=== PATIENT | male | born 1945 | race Caucasian/White ===

== ENCOUNTER → 2018-04-05 14:26 | Outpatient (CLI) | payer MEDICARE, OTHER, SELFPAY ==
[2018-04-05 15:37] LABS: PSA,Total - Annual Screen 0.56 ng/mL (0.00-4.00)
== END ==
PROVIDERS: Family Provider Internal Medicine; PCP Internal Medicine; Visit Provider Urology
DX: Z12.5 Encounter for screening for malignant neoplasm of prostate (principal)
CPT/HCPCS: 36415; 84153; G0103

== ENCOUNTER 2018-06-06 21:10 | Emergency (ER) | payer MEDICARE, OTHER, SELFPAY ==
[2018-06-06 21:11] VITALS: BP 92/54; PULSE 111; RESP 18; TEMP 37.9; O2SAT 94; BMI 23.2
--- NOTE | 2018-06-06 22:08 | EKG12_ITS ---
Test Reason : CP Blood Pressure : / mmHG Vent. Rate : 107 BPM Atrial Rate : 107 BPM P-R Int : 152 ms QRS Dur : 086 ms QT Int : 342 ms P-R-T Axes : 082 -23 010 degrees QTc Int : 456 ms Sinus tachycardia Leftward axis Low voltage QRS (limb leads) Anterior infarct , age undetermined Abnormal ECG Confirmed by BERNA JOSE, SHAHNAZ ([id number]), story editor ANAMIKA NOVAK ([id number]) on 06/10/2018 1:09:08 PM Referred By: ANDRE/JOSE LUIS Confirmed By:SHAHNAZ CORONEL MD
--- NOTE | 2018-06-06 22:15 | RAD_ITS ---
STUDY: X-RAY CHEST REASON FOR EXAM: Male, 72 years old. Shortness of breath TECHNIQUE: Frontal view of the chest COMPARISON: 06/04/2016 FINDINGS: The lungs are clear. There are no pleural effusions. There is no pneumothorax. The heart is normal in size. There are stable postsurgical changes from a prior sternotomy and coronary artery bypass. RAD/Chest 1 View (Portable) IMPRESSION: No acute thoracic pathology. Electronically Signed: Rodrigo Kemp, at 23:23 EDT Tel , Service support ,
[2018-06-06 22:30] LABS: Absolute Neutrophil Count 9.5 X10^3/uL (2.0-7.7); Basophil# 0.02 X10^3/uL; Basophil% 0.2 % (0-1); Differential Indicated SCAN CRITERIA MET; Eosinophil# 0.05 X10^3/uL; Eosinophils% 0.4 % (0-5); Hematocrit 48.9 % (40-54); Hemoglobin 16.7 g/dl (13.0-16.5); Lymphocyte % 5.3 % (19-41); Mean Corp Hgb Conc 34.2 g/gl (32-36); Mean Corpuscular Hgb 31.9 pg (27.0-32.0); Mean Corpuscular Volume 93.5 fL (80-94); Mean Platelet Vol. 10.1 fl (6.2-12.0); Monocyte# 1.11 X10^3/uL; Monocyte% 9.9 % (0-10); Neutrophil # 9.45 X10^3/uL (2.7-7.7); Neutrophil % 84.1 % (47-70); POSITIVE COUNT NO; POSITIVE DIFFERENTIAL YES; POSITIVE MORPHOLOGY NO; Platelet Count 200 K/mm3 (150-450); RBC Distribution Width CV 14.4 % (11.6-14.6); Red Blood Count 5.23 M/mm3 (4.6-6.2); White Blood Count 11.2 K/mm3 (4.4-11.0)
[2018-06-06] MEDS: Morphine 4 MG/ML Syringe IV (22:33)
[2018-06-06] MEDS: MethylPREDNISolone 125 MG/2 ML Vial IV (22:33)
[2018-06-06] MEDS: 0.9% Normal Saline 1,000 ML 150 ML IV (22:33)
[2018-06-06] MEDS: Acetaminophen 500 MG Tablet 1000 MG PO (22:33)
[2018-06-06] MEDS: Ondansetron 4 MG/2 ML Vial IV (22:33)
[2018-06-06 22:35] VITALS: BP 108/68; PULSE 99; RESP 20; O2SAT 94
[2018-06-06 22:35] LABS: ALB/GLOB Ratio 1.1 RATIO (0.9-2.4); AST(SGOT) 27 U/L (15-37); Alanine Aminotransfer ALT/SGPT 21 U/L (16-61); Albumin, Serum 3.8 g/dL (3.2-5.0); Alkaline Phosphatase 54 U/L (45-117); Anion Gap 11 (5-15); BUN 23 mg/dL (7-18); Calcium,Total 8.8 mg/dL (8.5-10.1); Chloride 108 mmol/L (98-107); Creatinine, Serum 1.28 mg/dL (0.70-1.30); EST Glomerular Filtration Rate 59 mL/min (>60); Est Glom Filt Rate - Afr Amer 71 mL/min (>60); Estimated Creatinine Clearance 50.47 ml/min; Globulin 3.5 g/dL (2.2-4.2); Glucose 114 mg/dL (74-106); Potassium 4.3 mmol/L (3.5-5.1); Protein, Total 7.3 g/dL (6.4-8.2); Sodium Level 139 mmol/L (136-145)
[2018-06-06 22:45] LABS: International Normalized Ratio 1.1; Prothrombin Time (Protime)PT. 14.4 SECONDS (11.7-14.9)
[2018-06-06 22:46] LABS: Partial Thromboplast Time 33.6 Seconds (24.1-36.2)
[2018-06-06 22:58] LABS: Bacteria 0 SEEN /hpf (None Seen); Color, Urine Yellow (Yellow); Glucose, Dipstick 1000 mg/dl (Normal); Ketone-Dipstick 15 mg/dl (Negative); Leukocyte Esterase-Dipstick 25 /ul (Negative); Mucous, Urine 0 SEEN /hpf (<or=2+); Nitrite-Dipstick Negative (Negative); Occult Blood-Urine 25 /ul (Negative); Protein-Dipstick 15 mg/dl (Negative); Specific Gravity, Urine 1.015 (1.002-1.030); Urine Bilirubin Dipstick Negative (Negative); Urine Clarity Clear (Clear); Urine Urobilinogen Normal (Normal)
[2018-06-06] MEDS: Ipratropium/Albuterol Sulfate 3 ML AMPUL.NEB INHALATION (23:02)
[2018-06-06 23:05] VITALS: PULSE 99; RESP 18
[2018-06-06 23:06] LABS: Red Blood Cells-Urine 0-5 SEEN /hpf (0-5); Squamous Epithelial Cells - UA 0-5 SEEN /hpf (0-5); White Blood Cells 0-5 SEEN /hpf (0-5)
[2018-06-06 23:08] LABS: Differential Comment SCANNED
[2018-06-06 23:21] LABS: Lactic Acid 0.8 mmol/L (0.4-2.0)
[2018-06-07 00:01] VITALS: BP 91/49; PULSE 97; RESP 20; O2SAT 96
[2018-06-07 00:28] VITALS: PULSE 96; RESP 18; O2SAT 96
[2018-06-07] MEDS: Albuterol 2.5 MG/3 ML VIAL.NEB. INHALATION (00:28)
[2018-06-07] MEDS: Doxycycline 100 MG CAPSULE PO (00:32)
--- NOTE | 2018-06-07 00:46 | ED.VISSUMM ---
- ER Visit Summary Date of Service: 06/07/18 Chief Complaint: Cough History of Present Illness: The patient is a [address] Bates and Dr. Schmidt. He has a cough that began yesterday. It is productive of clear sputum without blood. He has had subjective fever and chills. Sore throat this 2 out of 10 severity. Ports that he has had a constant aching chest pain all day. It is 8 out of 10 at worst through 10 currently. Is worsened with coughing or exertion. Is relieved with rest. She had moderate shortness of breath is much worse with walking. He has been wheezing. He has never had to use an inhaler. However, he does smoke 2-3 cigars per day. Patient reports that he has been nausea and vomited once today. No blood in his reports he has a headache is 7 out of 10 severity. He denies history of similar headaches. Physical Examination: Vitals: 100.2, 92/54, 111, 18, 94% on room air which is not hypoxic. General: Well-nourished and well-developed. Head: Normocephalic atraumatic. Neck: Supple, no lymphadenopathy. No JVD. Nontender. Cardiovascular: Regular rate and rhythm. No murmurs. Respiratory: No respiratory distress. Moderate wheezing bilaterally with rhonchi on the left. Abdominal: Soft, nontender, nondistended, normal bowel sounds. No guarding, rebound, or peritoneal signs. Back: Nontender. Extremities: Nontender, no edema. Skin: Normal color, no rash. Neurologic: Alert and oriented ?3. Cranial nerves II through XII are intact. Normal strength and sensation. Psych: Normal affect. Test Results: EKG is sinus tach at 107 with no acute changes. Troponins negative. UA is negative. INR is 1.1. PTT is 33.6. Lactic acid is 0.8. Chem-7 is remarkable for a chloride of 108, CO2 of 20, BUN 23, glucose of 114. CBC is more for white count 11.2 with hemoglobin 16.7. Segmented neutrophils 84 and lymphocytes 5. Chest x-ray shows chronic changes and no infiltrate. Emergency Department Course and Treatment: Patient was given albuterol Atrovent aerosols. Following this his chest pain completely resolved and is shortness of breath is much improved. Repeat exam shows him to continue to have mild wheezing on the left. Is given another albuterol aerosol. Is given Solu-Medrol IV. Treatment Plan: Patient feels much improved and would like to go home. Discuss them the likelihood that he does have a COPD, but this will require formal testing. He will be treated as a COPD exacerbation. Placed on a 5 day burst of prednisone, albuterol MDI, doxycycline. Instructed follow-up Dr. Bates on 3-5 days for another exam. Return to the emergency department for any worsening symptoms. Disposition: To home in improved and stable condition. Impression: 1. Bronchitis with bronchospasm. 2. Tobacco abuse. This note was generated with [employer] dictation software. It may contain incorrect words, spelling, and punctuation that were not noted in review of the chart prior to signing ED Disposition - Plan for ED Patient: Chief Complaint: Shortness of Breath Instructions: ED Upper Resp Infec Abx Tx Prescriptions: Prednisone [Deltasone] 60 mg PO DAILY #15 tablet Doxycycline Monohydrate 100 mg PO BID #20 capsule Referrals: Becca Bates DO [Primary Care Provider] - 3-5 Days Alek Harper DO [STAFF PHYSICIAN] -
[2018-06-07] MEDS: predniSONE 20 MG Tablet 60 MG PO (01:12)
[2018-06-07 01:24] VITALS: BP 100/53; PULSE 95; RESP 15; O2SAT 95
--- NOTE | 2018-06-07 01:32 | ED.RN ---
PT AND EDUCATED ON WRITTEN AND VERBAL DISCHARGE INSTRUCTIONS. PT VERBALIZES UNDERSTANDING. PT INSTRUCTED ON USE OF INHALER BY RESPIRATORY. PT IV'S D/C AND COVERED WITH 2X2 GAUZE DRESSING AND PAPER TAPE. PRESSURE APPLIED TO STOP THE BLEEDING. PT DENIES ANY FURTHER QUESTIONS. PT DRESSES SELF AND AMBULATES OUT OF DEPT WITH .
== END 2018-06-07 01:34 | disposition home or self-care (01) ==
LOC: ED 22:21
PROVIDERS: Emergency Provider Emergency Medicine; Family Provider Internal Medicine; PCP Internal Medicine
DX: J40 Bronchitis, not specified as acute or chronic (principal); J98.01 Acute bronchospasm; I25.10 Atherosclerotic heart disease of native coronary artery without angina pectoris; I10 Essential (primary) hypertension; E78.00 Pure hypercholesterolemia, unspecified; E11.9 Type 2 diabetes mellitus without complications; F17.210 Nicotine dependence, cigarettes, uncomplicated; Z95.1 Presence of aortocoronary bypass graft; Z79.84 Long term (current) use of oral hypoglycemic drugs; Z79.82 Long term (current) use of aspirin; Z79.899 Other long term (current) drug therapy
CPT/HCPCS: 36415; 71045; 80053; 81001; 83605; 84484; 85025; 85610; 85730; 87040; 87086; 87088; 93005; 94640; 96361; 96374; 96375; 99285; J7030; A4216; J2405

== ENCOUNTER → 2018-08-23 07:44 | Outpatient (CLI) | payer MEDICARE, OTHER, SELFPAY ==
--- NOTE | 2018-08-23 16:38 | PFTCOMP ---
COMPLETE PULMONARY FUNCTION TEST INTERPRETATION Brief HPI: Patient is a 72 year old male, currently under the care of Dr. Bates, who presents to [facility] for complete pulmonary function tests secondary to diagnosis of COPD. Respiratory therapist reports good effort and reproducible results. Interpretation: Forced expiration spirometry shows a moderate large airways obstructive ventilatory defect with an FEV1 of 67% predicted. There is no significant bronchodilator response by ATS criteria. Spirograms are of good quality and plateau slowly, indicating slowly emptying areas of the lungs. The respiratory flow volume loop shows decreased expiratory flow rates at all lung volumes consistent with airway obstruction. Lung volumes by body plethysmography show a normal total lung capacity at 5.54 L, 92% predicted. All other lung volumes are within normal limits. Diffusion capacity by carbon monoxide is normal at 99% predicted. The airway resistance is elevated. Compared to previous pulmonary function tests from 04/09/2016, there has been a significant improvement in air trapping and hyperinflation. Impression: Irreversible moderate large airways obstructive ventilatory defect with some improvement compared to previous testing.
--- NOTE | 2018-08-23 16:41 | PFTCOMP_ITS ---
COMPLETE PULMONARY FUNCTION TEST INTERPRETATION Brief HPI: Patient is a 72 year old male, currently under the care of Dr. Bates , who presents to [facility] for complete pulmonary function tests secondary to diagnosis of COPD. Respiratory therapist reports good effort and reproducible results. Interpretation: Forced expiration spirometry shows a moderate large airways obstructive ventilatory defect with an FEV1 of 67% predicted. There is no significant bronchodilator response by ATS criteria. Spirograms are of good quality and plateau slowly, indicating slowly emptying areas of the lungs. The respiratory flow volume loop shows decreased expiratory flow rates at all lung volumes consistent with airway obstruction. Lung volumes by body plethysmography show a normal total lung capacity at 5.54 L , 92% predicted. All other lung volumes are within normal limits. Diffusion capacity by carbon monoxide is normal at 99% predicted. The airway resistance is elevated. Compared to previous pulmonary function tests from 04/09/2016, there has been a significant improvement in air trapping and hyperinflation. Impression: Irreversible moderate large airways obstructive ventilatory defect with some improvement compared to previous testing.
== END ==
PROVIDERS: Family Provider Internal Medicine; PCP Internal Medicine; Visit Provider Internal Medicine
DX: J44.9 Chronic obstructive pulmonary disease, unspecified (principal)
CPT/HCPCS: 94060; 94726; 94729

== ENCOUNTER → 2018-10-01 15:40 | Outpatient (CLI) | payer MEDICARE, OTHER, SELFPAY ==
--- NOTE | 2018-10-01 15:44 | RAD_ITS ---
HISTORY: Right hip pain Comparison: 08/11/2017 Findings: 3 views of the pelvis and right hip. No fracture or acute disease. The right and left femoral heads appear aspherical with suggestion of superior lateral cam-type femoral acetabular impingement bilaterally. No significant joint space narrowing. No suspicious bony lesion. Degenerative changes of the SI joints bilaterally. Extensive atherosclerotic calcifications. Left inguinal surgical clip. RAD/HIP, UNI W/ Pelvis 2-3 Views IMPRESSION: 1. 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 2. No fracture or acute disease. 3. Extensive atherosclerotic calcifications and chronic claudication is a consideration. at 0154 Reported and signed by: Garret Boone MD Electronically Signed: Garret Boone, at 1:52 EDT Tel , Service support ,
== END ==
PROVIDERS: Family Provider Internal Medicine; PCP Internal Medicine; Referring Provider Internal Medicine; Visit Provider Internal Medicine
DX: M25.551 Pain in right hip (principal)
CPT/HCPCS: 73502

== ENCOUNTER → 2018-10-07 10:34 | Outpatient (CLI) | payer MEDICARE, OTHER, SELFPAY ==
--- NOTE | 2018-10-17 20:59 | LEAS_ITS ---
Arterial Study - Arterial Study Arterial Study: This is a 72-year-old male with a history of coronary artery disease, h ypertension, and hyperlipidemia. The patient also has a history of peripheral arterial occlusive disease. He is brought to the noninvasive vascular laboratory at this time for the purpose of bilateral noninvasive lower extremity arterial assessment. Doppler signal assessment was used to evaluate the pulses at ankle level bilaterally. On the right, the posterior tibial and dorsalis pedis pulses were biphasic. The left posterior tibial pulse was biphasic. The left dorsalis pedis pulse was monophasic. Segmental pressures were obtained bilaterally at ankle level. The right ankle pressure, as determined by posterior tibial pulse, was measured at 105 mmHg. The right ankle pressure, as determined by dorsalis pedis pulse, was measured at 101 mmHg. The left ankle pressure, as determined by posterior tibial pulse, was measured at 79 mmHg. The left ankle pressure, as determined by dorsalis pedis pulse, was measured at 63 mmHg. Pulse?volume recordings were obtained at ankle level bilaterally. Waveform amplitudes appeared to be satisfactory bilaterally. Resting ankle?brachial indices were calculated bilaterally. The resting right ankle?brachial index was calculated to be 0.98. The resting left ankle?brachial index was calculated to be 0.74. The patient was ambulated on a treadmill for 5 minutes at 1.8 mph and a 5% grade. He experienced left thigh pain. At the conclusion of exercise, ankle pressures were obtained at intervals. One minute following cessation of exercise, the right ankle pressure was measured at 65 mmHg, and the left ankle pressure was measured at 29 mmHg. Three minutes following the cessation of exercise, the right ankle pressure was measured at 83 mmHg, and the left ankle pressure was measured at 30 mmHg. Five minutes following cessation of exercise, the right ankle pressure was measured at 89 mmHg, and the left ankle pressure was measured at 30 mmHg. Seven minutes following cessation of exercise, the right ankle pressure was measured at 102 mmHg, and the left ankle pressure was measured at 37 mmHg. Nine minutes following cessation of exercise, the right ankle pressure was measured at 99 mmHg, and the left ankle pressure was measured at 43 mmHg. Impression: Based upon the findings of this resting and exercise noninvasive lower extremity arterial study, there is evidence of moderate to severe arterial occlusive disease in the lower extremities. Moderate disease is suspected in the right lower extremity, where Doppler waveforms at ankle level are biphasic, and the resting ankle?brachial index is normal. However, following a period of exercise, the right ankle pressure diminishes, which is an abnormal physiological response, and suggestive of the presence of arterial occlusive disease. In the left lower extremity, biphasic and monophasic waveforms are noted at ankle level. The resting left ankle?brachial index is moderately diminished. Following exercise, the left ankle pressure decreases significantly, and fails to return to pre-exercise levels even after nine minutes post exercise. In summary, there appears to be mild-moderate arterial occlusive disease in the right lower extremity, and moderate-severe arterial occlusive disease in the left lower extremity.
== END ==
PROVIDERS: Family Provider Internal Medicine; PCP Internal Medicine; Referring Provider Internal Medicine; Visit Provider Internal Medicine
DX: I73.9 Peripheral vascular disease, unspecified (principal)
CPT/HCPCS: 93922

== ENCOUNTER 2019-01-21 16:45 | Emergency (ER) | payer MEDICARE, OTHER, SELFPAY ==
[2019-01-21 16:45] VITALS: BP 125/60; PULSE 69; RESP 16; TEMP 36.8; O2SAT 100; BMI 24.0
--- NOTE | 2019-01-21 17:15 | ED.VISSUMM ---
- ER Visit Summary Date of Service: 01/21/19 Chief Complaint: Elevated potassium History of Present Illness: The patient is a 73 M who presents with an elevated potassium that was noticed today. Patient states he had lab work drawn by his primary care physician today. Patient states his primary care physician told him that his potassium was high and he needed to come to the emergency department. Patient denies any chest pain. Patient denies any palpitations. Patient denies any shortness of breath. Patient denies any other symptoms. Physical Examination: Vital signs are stable. Patient is afebrile. Patient is in no acute distress. Oral mucosa is pink and moist. Neck is supple. Trachea is midline. There is no JVD noted. Heart was regular rate and rhythm. Lungs are clear and equal bilateral. Abdomen is soft. Bowel sounds are normal. There is no tenderness. There is no guarding noted. Skin is warm dry. Cranial nerves II through XII are intact. There are no focal motor or sensory deficits noted. The remaining physical exam is within normal limits. Test Results: CBC was normal. Basic metabolic profile showed an elevated BUN of 21 and creatinine 1.32. These are unchanged compared to previous results. Potassium was normal at 3.8. EKG showed a normal sinus rhythm with a rate of 56. There are no acute ST or T wave changes noted. Emergency Department Course and Treatment: Patient was reassured of his lab results. Patient was instructed to follow-up with his primary care physician as scheduled. Patient and his understood and were agreeable with the plan. All questions were answered. Disposition: Discharge home Impression: Feared complaint This note was generated with [employer] dictation software. It may contain incorrect words, spelling, and punctuation that were not noted in review of the chart prior to signing ED Disposition - Plan for ED Patient: Disposition: Home or Assisted Living Diagnosis: No problem, feared complaint unfounded Referrals: Becca Bates DO [Primary Care Provider] - Additional Instructions: Your potassium was normal today. It was 3.8. Follow-up with your primary care physician as scheduled next week.
--- NOTE | 2019-01-21 17:16 | EKG12_ITS ---
Test Reason : DYSRHYTHMIA Blood Pressure : / mmHG Vent. Rate : 056 BPM Atrial Rate : 056 BPM P-R Int : 152 ms QRS Dur : 092 ms QT Int : 438 ms P-R-T Axes : 040 -04 -02 degrees QTc Int : 422 ms Sinus bradycardia Otherwise normal ECG Confirmed by MONIQUE JOSE, ALMAZ ([id number]), video news editor DO WEST ([id number]) on 01/25/2019 4:43:21 PM Referred By: HYACINTH Confirmed By:ALMAZ AMAYA MD
[2019-01-21 17:34] LABS: Absolute Lymphocyte Count 3.31 X10^3/ul (0.83-4.51); Absolute Neutrophil Count 3.5 X10^3/uL (2.0-7.7); Basophil# 0.05 X10^3/uL; Basophil% 0.6 % (0-1); Eosinophil# 0.17 X10^3/uL; Eosinophils% 2.1 % (0-5); Lymphocyte # 3.31 X10^3/ul (4.0); Lymphocyte % 41.7 % (19-41); Mean Corp Hgb Conc 33.3 g/gl (32-36); Mean Corpuscular Hgb 31.9 pg (27.0-32.0); Mean Corpuscular Volume 95.7 fL (80-94); Mean Platelet Vol. 10.6 fl (6.2-12.0); Monocyte# 0.93 X10^3/uL; Monocyte% 11.7 % (0-10); Neutrophil # 3.45 X10^3/uL (2.7-7.7); Neutrophil % 43.6 % (47-70); Platelet Count 253 K/mm3 (150-450); RBC Distribution Width CV 14.9 % (11.6-14.6); RBC Distribution Width SD 51.2 fl (35.1-43.9); Red Blood Count 5.33 M/mm3 (4.6-6.2); White Blood Count 7.9 K/mm3 (4.4-11.0)
[2019-01-21 17:43] LABS: POSITIVE COUNT NO; POSITIVE DIFFERENTIAL NO; POSITIVE MORPHOLOGY NO
[2019-01-21 17:45] LABS: Anion Gap 8 (5-15); BUN 21 mg/dL (7-18); BUN/Creat Ratio 15.9 RATIO (10-20); Calcium,Total 8.9 mg/dL (8.5-10.1); Chloride 108 mmol/L (98-107); Creatinine, Serum 1.32 mg/dL (0.70-1.30); EST Glomerular Filtration Rate 57 mL/min (>60); Est Glom Filt Rate - Afr Amer 68 mL/min (>60); Estimated Creatinine Clearance 48.22 ml/min; Glucose 106 mg/dL (74-106); Potassium 3.8 mmol/L (3.5-5.1); Sodium Level 142 mmol/L (136-145)
[2019-01-21 18:23] VITALS: BP 120/59; PULSE 63; RESP 16
== END 2019-01-21 18:25 | disposition home or self-care (01) ==
LOC: ED 18:24
PROVIDERS: Emergency Provider Emergency Medicine; Family Provider Internal Medicine; PCP Internal Medicine
DX: Z71.1 Person with feared health complaint in whom no diagnosis is made (principal)
CPT/HCPCS: 80048; 85025; 93005; 99284; A4216

== ENCOUNTER → 2019-05-10 06:16 | Outpatient (CLI) | payer MEDICARE, OTHER, SELFPAY ==
[2019-04-27 09:59] VITALS: BMI 22.7
--- NOTE | 2019-05-10 09:28 | STRESSREP ---
Stress Test Report Date: 05-10-19 Procedure: Exercise tolerance test/imaging study Indications: ED UT: PCI; CABG Consent: Per the patient Procedure: The patient exercised on a Trever protocol for 8 minutes completing Stage II and 2 minutes of Stage III achieving a peak heart rate of 137 bpm (93 % predicted maximal heart rate) with a peak blood pressure 118/62 mmHg and a peak MET capacity of 9 METs. The baseline ECG demonstrated normal sinus rhythm; poor R wave progression; anterior UT of indeterminate age cannot be excluded; nonspecific ST segment abnormality. The peak exercise ECG demonstrated somatic/motion artifact with no obvious ECG changes. There was a rare PVC during recovery. The functional capacity was considered good. There was no complaint of chest discomfort during exercise or recovery. The examination was discontinued secondary to dyspnea and leg discomfort. Impression: 1. Technically adequate (percent predicted maximal heart rate greater than 85%) exercise tolerance test 2. Peak exercise ECG demonstrated somatic/motion artifact with no obvious ECG changes 3. There was a rare PVC during recovery 4. Nuclear images pending Myocardial perfusion imaging study: Technique: The patient was injected with 11.5 mCi of technetium 99m Cardiolite and subsequently rest SPECT Cardiolite nuclear imaging was obtained in the horizontal long, vertical long, and short axis views. The patient exercised on a Trever protocol for 8 minutes completing Stage II and 2 minutes of Stage III achieving a peak heart rate of 137 bpm (93 % predicted maximal heart rate) with a peak blood pressure 118/62 mmHg and a peak MET capacity of 9 METs. The patient was injected with 34.2 mCi of technetium 99m Cardiolite and subsequently stress SPECT Cardiolite nuclear imaging was obtained in the horizontal long, vertical long, and short axis views. A gated Cardiolite study at peak stress was obtained. Interpretation: Rest and stress SPECT Cardiolite nuclear imaging status post realignment, normalization, and attenuation correction, demonstrates the appearance at rest of an area of diminished tracer uptake to absence of tracer uptake in portions of the mid to distal anterior, anterior apical, septal apical, and lateral apical segments which status post stress appears to be similar without significant change. There is diminished end systolic thickening and brightening. The gated Cardiolite study demonstrates the gated Cardiolite study demonstrates diminished myocardial thickening and inward wall motion. The reported LVEF is 41 %. Impression: 1. Rest and stress SPECT Cardiolite nuclear imaging demonstrate my cardial perfusion changes appearing compatible with an area of previous myocardial injury/infarction with no myocardial perfusion changes considered diagnostic for associated myocardial ischemia. 2. The gated Cardiolite study reports an LVEF of 41 %. This note was generated with [employer] software. It may contain incorrect words, spelling, and punctuation that were not noted in checking the note before signing.
--- NOTE | 2019-05-10 09:37 | STRESSREP_ITS ---
Stress Test Report Date: 05-10-19 Procedure: Exercise tolerance test/imaging study Indications: ED VT: PCI; CABG Consent: Per the patient Procedure: The patient exercised on a Trever protocol for 8 minutes completing Stage II and 2 minutes of Stage III achieving a peak heart rate of 137 bpm (93 % predicted maximal heart rate) with a peak blood pressure 118/62 mmHg and a peak MET capacity of 9 METs. The baseline ECG demonstrated normal sinus rhythm; poor R wave progression; anterior VT of indeterminate age cannot be excluded; nonspecific ST segment ab normality. The peak exercise ECG demonstrated somatic/motion artifact with no obvious ECG changes. There was a rare PVC during recovery. The functional capacity was considered good. There was no complaint of chest discomfort during exercise or recovery. The examination was discontinued secondary to dyspnea and leg discomfort. Impression: 1. Technically adequate (percent predicted maximal heart rate greater than 85%) exercise tolerance test 2. Peak exercise ECG demonstrated somatic/motion artifact with no obvious ECG changes 3. There was a rare PVC during recovery 4. Nuclear images pending Myocardial perfusion imaging study: Technique: The patient was injected with 11.5 mCi of technetium 99m Cardiolite and subsequently rest SPECT Cardiolite nuclear imaging was obtained in the horizontal long, vertical long, and short axis views. The patient exercised on a Trever protocol for 8 minutes completing Stage II and 2 minutes of Stage III achieving a peak heart rate of 137 bpm (93 % predicted maximal heart rate) with a peak blood pressure 118/62 mmHg and a peak MET capacity of 9 METs. The patient was injected with 34.2 mCi of technetium 99m Cardiolite and subsequently stress SPECT Cardiolite nuclear imaging was obtained in the horizontal long, vertical long, and short axis views. A gated Cardiolite study at peak stress was obtained. Interpretation: Rest and stress SPECT Cardiolite nuclear imaging status post realignment, normalization, and attenuation correction, demonstrates the appearance at rest of an area of diminished tracer uptake to absence of tracer uptake in portions of the mid to distal anterior, anterior apical, septal apical, and lateral apical segments which status post stress appears to be similar without significant change. There is diminished end systolic thickening and brightening. The gated Cardiolite study demonstrates the gated Cardiolite study demonstrates diminished myocardial thickening and inward wall motion. The reported LVEF is 41 %. Impression: 1. Rest and stress SPECT Cardiolite nuclear imaging demonstrate my cardial perfusion changes appearing compatible with an area of previous myocardial injury/infarction with no myocardial perfusion changes considered diagnostic for associated myocardial ischemia. 2. The gated Cardiolite study reports an LVEF of 41 %. This note was generated with [employer] software. It may contain incorrect words, spelling, and punctuation that were not noted in checking the note before signing.
== END ==
PROVIDERS: Family Provider Internal Medicine; PCP Internal Medicine; Referring Provider Internal Medicine Cardiovascular Disease; Visit Provider Internal Medicine Cardiovascular Disease
DX: I25.10 Atherosclerotic heart disease of native coronary artery without angina pectoris (principal); Z95.1 Presence of aortocoronary bypass graft; Z95.5 Presence of coronary angioplasty implant and graft
CPT/HCPCS: 78452; 93017; A9500; A4216

== ENCOUNTER → 2019-05-12 14:37 | Outpatient (CLI) | payer MEDICARE, OTHER, SELFPAY ==
[2019-04-27 09:59] VITALS: BMI 22.7
[2019-05-12 16:16] LABS: PSA,Total - Annual Screen 0.41 ng/mL (0.00-4.00)
== END ==
PROVIDERS: Family Provider Internal Medicine; PCP Internal Medicine; Referring Provider Urology; Visit Provider Urology
DX: N40.0 Benign prostatic hyperplasia without lower urinary tract symptoms (principal); Z12.5 Encounter for screening for malignant neoplasm of prostate
CPT/HCPCS: 36415; 84153; G0103

== ENCOUNTER → 2019-08-18 10:37 | Outpatient (CLI) | payer MEDICARE, OTHER, SELFPAY ==
[2019-04-27 09:59] VITALS: BMI 22.7
--- NOTE | 2019-08-18 10:41 | CT_ITS ---
STUDY: LOW DOSE CT LUNG CANCER SCREENING REASON FOR EXAM: Male, 73 years old. Current smoker. 2 cigars per day for 10 years. RADIATION DOSAGE (If Supplied By Facility): CTDIvol = ( 3.02 ) mGy, DLP = ( 109.85 ) mGycm TECHNIQUE: No contrast was administered. Low dose technique was utilized (average mAS-38 and kVp 120). 1.25 mm axial source images with a slice interval of 1.25-mm were reconstructed in lung windows. 2.5 mm axial source images with a slice interval of 2.5-mm were reconstructed in lung windows. 5.0 mm axial source images with a slice interval of 5.0-mm were reconstructed in soft tissue windows. Nodule measured using lung windows on PACS and/or independent workstation with automated measurement of minimum and maximum diameter. Nodule measurement reported as average diameter rounded to the nearest whole number. Growth is defined as an increase ins size of greater than 1.5 mm. COMPARISON: None. NODULES: Total lung nodules (excluding granulomas): 0 Emphysema: There are mild emphysematous changes lungs. Endobronchial lesion: Not Aorta: There is atherosclerotic changes of the thoracic aorta without aneurysm. Coronary arteries: There is evidence of CABG procedure. Heart: Normal in size Pulmonary artery: Normal in size Mediastinal nodes: There is nonspecific mediastinal lymphadenopathy. Other chest and abdominal findings: There are degenerative changes of the thoracic spine. CT/Low Dose CT Lung Screening IMPRESSION: Lung-RADS category 1 - Continue annual screening with LDCT in 12 months. IMPORTANT NOTES FOR USE: ACR Lung-RADS Version 1.0 Assessment Categories Release Date: March 27, 2014 Category: Coded 0-4 bases on nodule(s) with highest degree of suspicion. Negative screen is defined as categories 1 and 2; a positive screen is defined as categories 3 and 4. Category 3 and 4A nodules that are unchanged on interval CT should be coded as category 2, and individuals returned to screening in 12 months. Category 4X: Category 3 or 4 nodules with additional imaging findings that increase the suspicion of lung cancer, such as spiculation, GGN that doubles in size in 1 year, enlarged lymph notes, etc. Category Modifiers: S (significant finding unrelated to lung cancer) and C (prior history of treated lung cancer) may be added to the 0-4 Lung-RADS Electronically Signed: Tristin Davila DO at 21:31 EDT Tel [phone], Service support ,
== END ==
PROVIDERS: Family Provider Internal Medicine; PCP Internal Medicine; Referring Provider Internal Medicine; Visit Provider Internal Medicine
DX: Z12.2 Encounter for screening for malignant neoplasm of respiratory organs (principal); Z87.891 Personal history of nicotine dependence
CPT/HCPCS: G0297

== ENCOUNTER → 2019-08-25 12:52 | Outpatient (CLI) | payer MEDICARE, OTHER, SELFPAY ==
[2019-04-27 09:59] VITALS: BMI 22.7
--- NOTE | 2019-08-26 08:16 | PFT ---
INTRODUCTION: The patient is a 73-year-old male that presents for pulmonary function studies secondary to a diagnosis of COPD. Respiratory therapy reports good patient effort. Bronchodilators were used during testing. INTERPRETATION: Forced expiration spirometry demonstrates the presence of a moderate large airways obstructive ventilatory defect. There was a significant response to aerosolized bronchodilators noted, based upon change noted in FVC. Spirograms are of good quality and do not plateau indicating slow emptying of the lungs. Body plethysmography was performed and reveals an elevated RV to 154% of predicted, indicative of underlying air trapping. Diffusing capacity by single breath CO is within normal limits. IMPRESSION: Partially reversible moderate large airways obstructive ventilatory defect with associated air trapping and preserved diffusing capacity.
== END ==
PROVIDERS: Family Provider Internal Medicine; PCP Internal Medicine; Referring Provider Internal Medicine; Visit Provider Internal Medicine
DX: J44.9 Chronic obstructive pulmonary disease, unspecified (principal)
CPT/HCPCS: 94060; 94726; 94729

== ENCOUNTER → 2020-08-01 08:10 | Outpatient (CLI) | payer MEDICARE, OTHER, SELFPAY ==
[2020-04-13 10:37] VITALS: BMI 21.7
[2020-08-01 09:14] LABS: AST(SGOT) 18 U/L (15-37); Alanine Aminotransfer ALT/SGPT 24 U/L (16-61); Albumin, Serum 3.8 g/dL (3.2-5.0); Alkaline Phosphatase 53 U/L (45-117); Bilirubin, Direct 0.17 mg/dL (0.00-0.30); Cholesterol 131 mg/dL (200); Globulin 3.3 g/dL (2.2-4.2); High Density Lipoprotein 55 mg/dL; Protein, Total 7.1 g/dL (6.4-8.2); Triglycerides 86 mg/dL; Very Low Density Lipoprotein 17 mg/dL (5-40)
== END ==
PROVIDERS: PCP Internal Medicine; Referring Provider Internal Medicine Cardiovascular Disease; Visit Provider Internal Medicine Cardiovascular Disease
DX: E78.00 Pure hypercholesterolemia, unspecified (principal); I25.10 Atherosclerotic heart disease of native coronary artery without angina pectoris
CPT/HCPCS: 36415; 80061; 80076

== ENCOUNTER → 2020-10-01 14:13 | Outpatient (CLI) | payer MEDICARE, OTHER, SELFPAY ==
[2020-08-17 09:27] VITALS: BMI 21.6
[2020-10-01 15:09] LABS: PSA,Total - Annual Screen 0.46 ng/mL (0.00-4.00)
== END ==
PROVIDERS: PCP Internal Medicine; Visit Provider Urology
DX: Z12.5 Encounter for screening for malignant neoplasm of prostate (principal)
CPT/HCPCS: 36415; 84153; G0103

== ENCOUNTER 2021-04-30 15:00 | Outpatient (RCR) | payer MEDICARE, OTHER, SELFPAY ==
[2021-02-07 09:23] VITALS: BMI 22.1
--- NOTE | 2021-03-26 11:03 | HP.PTEVAL ---
Patient's Visit Information MARISOL BARRIGA is a 75 year old M referred to Physical Therapy by June Rodriges NP-C with a diagnosis of SCAITICA. Date of Evaluation: 03/26/21 Physical Therapist: Glenn Thomas, PT, Cert MDT, OCS - Visit Plan Frequency: 2x /Week Duration: 4 Weeks Plan: PT INTERVETIONS LUMBAR FLEXION,DLS ,POSTURAL EX'S ,AND MODALITIES PRN - Subjective This 75 y/o male presents to physical therapy with sciatica.Patient has had lumbar radicular symptoms left lateral hip to knee to foof anterior. Symptoms became worse thus seen DR and recommended PT and orthopedica spine DR this Thursday.Tried predisone which helped to decrease symptoms. X-rays showed mod facet /DDd L4--S1. Aggraveting factors walking,standing 10mins . Alleviating factors sitting bending. Patient c/o tigling left leg. Bowel/bladder-. Coughing/seezing-. No abdnormal night pain. Sleeping okay .No prior treatemnt. Patient symptoms affects QOL/function. SOCIAL: . VOCATION;retired - Pain Left Lower Extremity Pain Intensity (Out of 10): 5 Pain Intensity Range: 10 Comment: worse 8/10 - Objective POSTURE: mild foward posture. GAIT: reciprocal pattern antalgic left side. NEURO: denies parathesia/tingling ,reflexes L3-4,L4-5,L5-S1 1/3. PALAPTION: unremarkable. SYMMTRIES: alighn. MMT: quads L 4-/5,R 4/5 HIP L 4-/5,R 4/5 hams 4/5,ankle 4/5. FLEXABLITY: hams mild tight. LUMBAR ROM: flexion min loss,extension mod loss,side glide mod loss - Special Tests L/S Slump test left side: Negative L/S Slump test right side: Negative L/S Left Straight Leg Raise: Negative L/S Right Straight Leg Raise: Negative Lumbar Standing: Flexion - Mechanical Response: No effect Lumbar Standing: Flexion - Symptoms During Testing: Decreases Lumbar Standing: Flexion - Symptoms After Testing: Better Lumbar Standing: Extension - Mechanical Response: No effect Lumbar Standing: Extension - Symptoms During Testing: Increases Lumbar Standing: Extension - Symptoms After Testing: No worse Lumbar Standing: Right Side Glides - Mechanical Response: No effect Lumbar Standing: Right Side [place] - Symptoms During Testing: No effect Lumbar Standing: Right Side [place] - Symptoms After Testing: No effect Lumbar Standing: Left Side [place] - Mechanical Response: No effect Lumbar Standing: Left Side [place] - Symptoms During Testing: Increases Lumbar Standing: Left Side [place] - Symptoms After Testing: No worse Lumbar Lying: Flexion - Mechanical Response: No effect Lumbar Lying: Flexion - Symptoms During Testing: Abolishes Lumbar Lying: Flexion - Symptoms After Testing: Better - Goals Goal 1:: I with HEP Goal Time Frame: 4-6 Weeks Goal 2:: Improve posture for ADL'S Goal Time Frame: 4-6 Weeks Goal 3:: Decrease lumbar pain and radiular symptoms Left LE by 50% or > to improve QOL/function Goal Time Frame: 4-6 Weeks Goal 4:: Patient to improve lumbar ROM for function od recovery Goal Time Frame: 4-6 Weeks Goal 5:: Patient to improve back owestrty score by 5 points or > to improve QOL Goal Time Frame: 4-6 Weeks - Rehabilitation Potential Physical Therapy Diagnosis: This patient appears to have left sciatica with possibel lateral stenosis with symptoms better with flexion worse with standing and walking thus will benifit from skilled PT Rehabilitation Potential: Good - Anticipated Interventions Patient/Client Instruction: Educate patient on: Condition, Plan of Care For the Purpose of:: To decrease pain, To increase ROM, To improve nutrient delivery to tissue, To increase oxygenation perfusion, To improve muscle performance and motor function, To increase tolerance to activity/condition/position, To improve performance and independence with ADL's, To improve ability of physical actions for home/community/work/leisure, To improve health of tissue, To decrease soft tissue restriction, To increase flexibility/ROM, To improve ability to perform tasks related to life management Therapeutic Exercise to Include: Strength training, Body mechanics, Postural training, Flexibilty training, Dynamic Lumbar Stabilization For the Purpose of:: To decrease pain, To increase ROM, To improve muscle performance and motor function, To improve ability to perform ADL's, To increase tolerance to activity/condition/position, To improve ability of physical actions for home/community/work/leisure, To improve health of tissue, To decrease soft tissue restriction, To increase flexibility/ROM, To reduce risk of recurrence TENS: Yes IF ES: Yes Cryotherapy (ice pack, ice massage): Yes Thermo therapy (hot pack): Yes For the Purpose of:: To decrease pain, To increase ROM, To improve nutrient delivery to tissue, To increase oxygenation perfusion, To decrease soft tissue restriction, To increase flexibility/ROM Thank you for the opportunity to evaluate your patient. For Medicare and Medicare HMO plans, please review the plan of care and approve it. It will need to be FAXED BACK to us at [phone] for Medicare purposes. For Medicare only, by signing this I certify the plan of care. Please let me know if there are questions or concerns regarding this plan of care. Physician Signature: Date:
--- NOTE | 2021-09-03 07:31 | HP.PTDCSUM ---
It has been my pleasure to treat MARISOL BARRIGA referred by June Rodriges NP-C, with the diagnosis of SCAITICA for a total of 6 visit(s). Discharge Date: 04/30/21 Please see the following information for a summary of their discharge status. Subjective: No leg pain milld lateral hip ..in the morninmg some pain Left Lower Extremity Pain Intensity (Out of 10): 2 Lumbar spine Pain Intensity (Out of 10): 0 % Improvement: 70 Objective/Function: POSTURE: WFL. NEURO:MINTACT. MMT: 4/5 BLE. LUMBAR ROM: FLEXION MIN LOSS,EXTENSION MOD LOSS Goal 1:: I with HEP Goal Progress: Goal Met Goal 2:: Improve posture for ADL'S Goal Progress: Goal Met Goal 3:: Decrease lumbar pain and radiular symptoms Left LE by 50% or > to improve QOL/function Goal Progress: Goal Met Goal 4:: Patient to improve lumbar ROM for function od recovery Goal Progress: Goal Met Goal 5:: Patient to improve back owestrty score by 5 points or > to improve QOL Goal Progress: Goal Met Plan: D/C Discharge Comments: HEP If there are questions or concerns regarding this patient's physical therapy, please feel free to call me at [phone]. Thank you for the referral of this patient. Sincerely, Glenn Thomas, PT, Cert MDT, OCS Balance/Gait/Functional tests - Balance/Special Test Scores Oswestry Low Back Score: 8
== END 2021-04-30 19:00 | disposition home or self-care (01) ==
LOC: PT 15:00
PROVIDERS: PCP Internal Medicine; Referring Provider Nurse Practitioner; Visit Provider Nurse Practitioner
DX: M54.32 Sciatica, left side (principal)
CPT/HCPCS: 97012; 97110; 97162

== ENCOUNTER 2021-08-20 10:15 | Inpatient (IN) | payer MEDICARE, OTHER, SELFPAY ==
[2021-08-20] VITALS (14 sets, daily range): BP systolic 107–132; BP diastolic 51–79; PULSE 98–117; RESP 17–28; TEMP 36.4–36.8; O2SAT 88–97; BMI 23.5
--- NOTE | 2021-08-20 10:29 | EKG12_ITS ---
Test Reason : SOB Blood Pressure : / mmHG Vent. Rate : 101 BPM Atrial Rate : 101 BPM P-R Int : 170 ms QRS Dur : 090 ms QT Int : 350 ms P-R-T Axes : 078 -28 023 degrees QTc Int : 453 ms Sinus tachycardia Low voltage QRS (Limb Leads) Poor R wave progression Confirmed by BERNA JOSE, SHAHNAZ ([id number]), editor newspaper YASH CALHOUN ([id number]) on 08/23/2021 10:02:47 AM Referred By: JEZ Confirmed By:SHAHNAZ CORONEL MD
--- NOTE | 2021-08-20 10:30 | EX.ED.DYSGE1 ---
HPI History of Present Illness Chief Complaint: Shortness of Breath Informant: patient Onset/Context/Timing Onset: Days (2 days ago) Context: Gradual Onset Current Severity: Moderate Maximum Severity: Moderate Narrative Narrative: Patient presents with 2-day history of cough and shortness of breath. Cough is nonproductive. states he has coughed to the point of vomiting. He has had some mild subjective fever. He reports some mild diarrhea this morning. No vomiting. Patient denies any known exposures to Covid. He did receive the Isidro vaccine. He also got the influenza vaccine last week. [facility] Medical History (Updated 08/20/21 @ 15:[address] Deborah Hinds MD) Atherosclerotic heart disease of [place] coronary artery without angina pectoris CAD (coronary artery disease) Cardiomyopathy, ischemic CKD (chronic kidney disease) Diabetes Essential hypertension HLD (hyperlipidemia) HTN (hypertension) Ischemic cardiomyopathy Other fdc (current) drug therapy Presence of stent in coronary artery (~02/17/06) Pure hypercholesterolemia Type 2 diabetes mellitus Home Medications fenofibrate nanocrystallized 145 mg PO QHS 11/30/14 [History Last Taken 11/29/14 21:00] hkkpoodf-vir-NA-lycopen-lutein 1 ea PO DAILY 11/30/14 [History Last Taken 11/30/14 07:00] omega-3 fatty acids 500 mg PO DAILY 11/30/14 [History Last Taken 11/30/14 07:00] sitagliptin 100 mg PO DAILY 11/30/14 [History Last Taken 11/30/14 07:00] tamsulosin 0.4 mg PO DAILY #30 cap 12/05/14 [Rx Last Taken Unknown] aspirin 81 mg tablet,delayed release 81 mg PO QDAY 03/18/18 [History Last Taken Unknown] atorvastatin 80 mg tablet 80 mg PO QHS 03/18/18 [History Last Taken Unknown] finasteride 5 mg tablet 5 mg PO QDAY 03/18/18 [History Last Taken Unknown] losartan 25 mg tablet 25 mg PO QDAY 03/23/18 [History Last Taken Unknown] spironolactone 25 mg tablet 12.5 mg PO DAILY tab 03/23/18 [History Last Taken Unknown] nitroglycerin 0.4 mg sublingual tablet 0.4 mg SUBLINGUAL Q5-15M PRN #25 tab MDD cp 04/27/19 [Rx Last Taken Unknown] dapagliflozin 10 mg tablet 10 mg PO QAM 04/13/20 [History Last Taken Unknown] metoprolol tartrate 100 mg tablet 50 mg PO BID tab 08/17/20 [History Last Taken Unknown] metformin 500 mg tablet,extended release 24 hr 500 mg PO DAILY tab 02/07/21 [History Last Taken Unknown] Allergy/AdvReac Type Severity Reaction Status Date / Time No Known Allergies Allergy Verified 02/07/21 09:27 Family History Father Cancer Mother No problems noted. Surgical History History of cataract extraction History of colonoscopy History of prostate surgery History of prostate surgery History of removal of cyst Presence of coronary angioplasty implant and graft (~02/17/06) S/P CABG x 3 (~1991) S/P PTCA (percutaneous transluminal coronary angioplasty) Social History Smoking Status: Current every day smoker tobacco type: cigarettes and cigars per week: 10 alcohol intake: never substance use type: does not use caffeine: Yes Type: coffee Number of servings: 3 seatbelt use: always do you feel safe at home: Yes ROS ROS ED Constitutional Constitutional ED: Denies chills or fever(s) Eyes Eyes: Denies change in vision ENT ENT ED: Denies sore throat Cardiovascular Cardiovascular: Reports chest pain and other Details: Chest pain from coughing Respiratory/Chest Respiratory/Chest: Reports cough and dyspnea; Denies sputum Gastrointestinal Gastrointestinal: Reports vomiting and other Details: Posttussive emesis ; Denies abdominal pain, diarrhea or nausea Genitourinary Genitourinary ED: Denies dysuria Musculoskeletal Musculoskeletal: Denies back pain Integumentary Denies rash Neurologic Neurologic: Denies headache(s) or weakness Allergic/Immunologic Allergic/Immunologic ED: Denies urticaria EXAM Physical Exam Const Vital Signs: 08/20/21 10:16 08/20/21 10:19 08/20/21 10:57 Temperature 98.3 F 98.3 F Temperature Source Oral Oral Pulse Rate 110 H 110 H 98 Respiratory Rate 23 H 23 H 20 H Respiratory Effort Short of Breath Respiratory Depth Deep Respiratory Pattern Tachypnea Normal Blood Pressure 107/64 107/64 Blood Pressure Mean 78 78 Pulse Ox 92 94 Oxygen Delivery Method Room Air Room Air Oxygen Flow Rate (L/min) 2 08/20/21 11:23 08/20/21 12:27 08/20/21 13:55 Temperature 97.6 F L 98.1 F Temperature Source Oral Oral Pulse Rate 108 H 106 H 108 H Respiratory Rate 20 H 20 H 28 H Respiratory Effort Respiratory Depth Respiratory Pattern Tachypnea Blood Pressure 122/63 H 127/63 H Blood Pressure Mean 82 84 Pulse Ox 97 97 Oxygen Delivery Method Nasal Cannula Oxygen Flow Rate (L/min) 2 2 08/20/21 14:18 08/20/21 15:25 Temperature 98.1 F 98.2 F Temperature Source Axillary Oral Pulse Rate 102 H 117 H Respiratory Rate 17 27 H Respiratory Effort Respiratory Depth Respiratory Pattern Blood Pressure 132/79 H 110/51 L Blood Pressure Mean 96 70 Pulse Ox 95 94 Oxygen Delivery Method Nasal Cannula Oxygen Flow Rate (L/min) 2 2 Positive well nourished and well developed General Appearance ED: well developed HEENT Reports normocephalic and head/scalp atraumatic Eyes PERRL and EOMs intact bilaterally Neck supple Chest Wall inspection of chest normal and palpation of chest normal Resp normal respiratory effort Resp Narrative: Mild expiratory wheezes. Cardio regular rhythm Rate: tachycardic GI normal to inspection, nondistended, normoactive bowel sounds and non-tender Palpation: soft Extremity normal to inspection Neuro oriented x3 and no sensory deficits noted Sensorium / Orientation: alert Motor Exam: strength 5/5 throughout Psych mental status grossly normal Skin no rashes or lesions noted MDM MDM MDM Narrative Medical decision making narrative: Lab work and EKG obtained. Patient had been given 1 breathing treatment with squad. He was given an additional DuoNeb treatment here. Covid test obtained. Lab Data Attestation: I reviewed the patient's lab results. Labs: Laboratory Results - last 24 hr 08/20/21 08/20/21 08/20/21 10:20 10:20 10:20 WBC 15.0 H RBC 5.27 Hgb 16.4 Hct 50.4 MCV 95.6 H MCH 31.1 MCHC 32.5 RDW Std Deviation 50.4 H RDW Coeff of Livan 14.3 Plt Count 251 MPV 10.5 Immature Gran % (Auto) 0.500 Neut % (Auto) 87.5 H Lymph % (Auto) 6.5 L [place] % (Auto) 5.2 Eos % (Auto) 0.0 Baso % (Auto) 0.3 Absolute Neuts (auto) 13.1 H Absolute Lymphs (auto) 0.98 Nucleated RBC % 0 D-Dimer Quant (PE/DVT) 2.19 H* Sodium 136 Potassium 3.9 Chloride 105 Carbon Dioxide 23.0 Anion Gap 8 BUN 23 H Creatinine 1.32 H Estim Creat Clear Calc 46.78 Est GFR (MDRD) Af Amer 68 Est GFR (MDRD) Non-Af 56 L BUN/Creatinine Ratio 17.4 Glucose 220 H Lactic Acid Calcium 9.1 Total Bilirubin 0.50 AST 16 ALT 20 Alkaline Phosphatase 57 Total Protein 7.4 Albumin 3.5 Globulin 3.9 Albumin/Globulin Ratio 0.9 08/20/21 10:20 WBC RBC Hgb Hct MCV MCH MCHC RDW Std Deviation RDW Coeff of Livan Plt Count MPV Immature Gran % (Auto) Neut % (Auto) Lymph % (Auto) [place] % (Auto) Eos % (Auto) Baso % (Auto) Absolute Neuts (auto) Absolute Lymphs (auto) Nucleated RBC % D-Dimer Quant (PE/DVT) Sodium Potassium Chloride Carbon Dioxide Anion Gap BUN Creatinine Estim Creat Clear Calc Est GFR (MDRD) Af Amer Est GFR (MDRD) Non-Af BUN/Creatinine Ratio Glucose Lactic Acid 2.9 H* Calcium Total Bilirubin AST ALT Alkaline Phosphatase Total Protein Albumin Globulin Albumin/Globulin Ratio Radiography Diagnostic Testing: Radiology Impression Chest CTA 08/20/21 11:13 IMPRESSION: No evidence of bone embolism. Emphysematous changes. 1.7 cm x 1.8 cm adenoma in the right atrium. Electronically Signed: Tico Oliva MD at 12:12 EDT , Service support , ADDENDUM: 08/20/21 3599 This is an addendum report for voice recognition error. IMPRESSION 1.7 cm x 1.8 cm adenoma in the right adrenal gland. EKG Initial EKG: Attestation: I personally reviewed and interpreted this EKG as follows: Interpretation: Sinus Tachycardia (Sinus tach at 101. No acute ischemia.) Treatment and Re-Evaluation Comments:: On repeat evaluation patient had increased wheezing. He was given a dose of Solu-Medrol and 2 additional albuterol treatments. Lab work is reviewed with patient. Because his D-dimer was elevated the portable chest x-ray was canceled and CTA obtained. There is no evidence of pulmonary embolism. Emphysematous changes are noted. There is an adenoma noted in the right adrenal gland. Patient was given a dose of doxycycline secondary to underlying COPD. Respiratory viral panel ultimately returned positive for rhinovirus. We attempted to ambulate the patient but just turning to sit on bedside patient dropped to 86% on room air. I will speak with hospitalist regarding admission. Discharge Plan Triage Chief Complaint: Shortness of Breath ED Provider: Deborah Hinds Dx/Rx/DC Orders Clinical Impression: COPD exacerbation Prescriptions: No Action losartan 25 mg tablet 25 mg PO QDAY RF: 0 aspirin [Adult Low Dose Aspirin] 81 mg tablet,delayed release (DR/EC) 81 mg PO QDAY RF: 0 atorvastatin 80 mg tablet 80 mg PO QHS RF: 0 finasteride 5 mg tablet 5 mg PO QDAY RF: 0 nitroglycerin [Nitrostat] 0.4 mg tablet, sublingual 0.4 mg SUBLINGUAL Q5-15M MDD cp PRN (Reason: chest pain) Qty: 25 RF: 1 Farxiga 10 mg tablet 10 mg PO QAM RF: 0 metformin 500 mg tablet extended release 24 hr 500 mg PO DAILY RF: 0 egrsrlba-inh-GD-lycopen-lutein 1 EACH tablet 1 ea PO DAILY RF: 0 fenofibrate nanocrystallized 145 MG tablet 145 mg PO QHS RF: 0 sitagliptin 100 MG tablet 100 mg PO DAILY RF: 0 omega-3 fatty acids 500 MG capsule 500 mg PO DAILY RF: 0 spironolactone 25 mg tablet 12.5 mg PO DAILY RF: 0 metoprolol tartrate 100 mg tablet 50 mg PO BID RF: 0 tamsulosin 0.4 MG capsule 0.4 mg PO DAILY Qty: 30 RF: 0 Primary Care Provider: Becca Bates Referrals: Becca Bates DO [Primary Care Provider] - Disposition Disposition: Acute Care [facility]
[2021-08-20 10:53] LABS: Absolute Lymphocyte Count 0.98 X10^3/uL (0.83-4.51); Absolute Neutrophil Count 13.1 X10^3/uL (2.0-7.7); Basophil# 0.04 X10^3/uL; Basophil% 0.3 % (0-1); Hematocrit 50.4 % (40-54); Hemoglobin 16.4 g/dL (13.0-16.5); Lymphocyte # 0.98 X10^3/ul (0.83-4.51); Lymphocyte % 6.5 % (19-41); Mean Corp Hgb Conc 32.5 g/dL (32-36); Mean Corpuscular Hgb 31.1 pg (27.0-32.0); Mean Corpuscular Volume 95.6 fL (80-94); Mean Platelet Vol. 10.5 fl (6.2-12.0); Monocyte# 0.78 X10^3/uL; Monocyte% 5.2 % (0-10); NRBC Flagged by Analyzer 0 % (0-5); Neutrophil # 13.13 X10^3/uL (2.7-7.7); Neutrophil % 87.5 % (47-70); Platelet Count 251 K/mm3 (150-450); RBC Distribution Width CV 14.3 % (11.6-14.6); RBC Distribution Width SD 50.4 fl (35.1-43.9); Red Blood Count 5.27 M/mm3 (4.6-6.2)
[2021-08-20] MEDS: Ipratropium/Albuterol Sulfate 3 ML AMPUL.NEB INHALATION ×2 (10:57→18:59)
[2021-08-20 11:02] LABS: D-Dimer Quantitative (DVT/PE) 2.19 FEU/ug/m (0.27-0.49)
[2021-08-20 11:05] LABS: ALB/GLOB Ratio 0.9 RATIO (0.9-2.4); AST(SGOT) 16 U/L (15-37); Alanine Aminotransfer ALT/SGPT 20 U/L (16-61); Albumin, Serum 3.5 g/dL (3.2-5.0); Alkaline Phosphatase 57 U/L (45-117); Anion Gap 8 (5-15); BUN 23 mg/dL (7-18); BUN/Creat Ratio 17.4 RATIO (10-20); Calcium,Total 9.1 mg/dL (8.5-10.1); Chloride 105 mmol/L (98-107); Creatinine, Serum 1.32 mg/dL (0.70-1.30); EST Glomerular Filtration Rate 56 mL/min (>60); Est Glom Filt Rate - Afr Amer 68 mL/min (>60); Estimated Creatinine Clearance 46.78 ml/min; Globulin 3.9 g/dL (2.2-4.2); Glucose 220 mg/dL (74-106); Potassium 3.9 mmol/L (3.5-5.1); Protein, Total 7.4 g/dL (6.4-8.2); Sodium Level 136 mmol/L (136-145)
--- NOTE | 2021-08-20 11:13 | CT_ITS ---
STUDY: CTA CHEST REASON FOR EXAM: Male, 75 years old. Pulmonary embolism. RADIATION DOSAGE (If Supplied By Facility): CTDIvol = ( 10.1 ) mGy, DLP = ( 292.40 ) mGycm TECHNIQUE: The examination was performed with the intravenous administration of IV 100mL [id number]-370. Post-processing of the angiographic images was performed, with multiplanar reformation and 3D reconstruction. Individualized dose optimization techniques were used for this CT. COMPARISON: Comparison is made with prior examination dated 08/18/2019. FINDINGS: Normal enhancement of the main pulmonary artery and right and left pulmonary arteries. Normal enhancement of the bilateral peripheral pulmonary arteries. There is no demonstrated pulmonary embolism. Normal thoracic aorta and visualized great vessels. There is no demonstrated aortic dissection. Sternal cerclage wires and vascular clips are present from a prior sternotomy and coronary artery bypass graft procedure (CABG). There are calcifications of the coronary arteries. There are visualized mediastinal lymph nodes, which are within normal size limits, and with normal morphology. Normal hilar regions. Normal visualized trachea and bronchi. The lungs are well expanded. There is evidence of emphysematous changes. Normal pleura. Normal chest wall structures. There are degenerative changes of thoracic spine. There is evidence of a 1.7 cm x 1.8 cm adenoma and the right adrenal gland. CT/CTA Chest W/WO Contrast IMPRESSION: No evidence of bone embolism. Emphysematous changes. 1.7 cm x 1.8 cm adenoma in the right atrium. Electronically Signed: Tico Oliva MD at 12:12 EDT , Service support ,
[2021-08-20 11:14] LABS: Lactic Acid 2.9 mmol/L (0.4-1.9)
[2021-08-20] MEDS: MethylPREDNISolone 125 MG/2 ML Vial IV (13:32)
[2021-08-20] MEDS: Albuterol 2.5 MG/3 ML VIAL.NEB. INHALATION ×2 (13:45→13:55)
[2021-08-20 14:43] LABS: Reflex Lactate? Y
--- NOTE | 2021-08-20 15:17 | ED.RN ---
PTS OXYGEN DROPPED TO 88 JUST TRYING TO GET OUT OF BED ON RA. WHEN AMBULATING IT DROPPED TO 86.
[2021-08-20] MEDS: Doxycycline 100 MG CAPSULE PO (15:26)
[2021-08-20 15:46] LABS: Lactic Acid 2.9 mmol/L (0.4-1.9)
--- NOTE | 2021-08-20 16:51 | HP.PCM_ITS ---
Documented by User: NIEVES Minor 08/20/21 17:11 HPI - General General Date of Admission: 08/20/21 Date of Service: 08/20/21 Chief Complaint: Shortness of Breath HPI Narrative MARISOL BARRIGA, is a 75 M who presents with increased shortness of breath and 2- day history of cough. Patient reports that he has coughed so hard that he has vomited. Patient denies fever but reports chills. Patient has been vaccinated against Covid and influenza. Patient reports that he is a smoker and has COPD. 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 Presence of stent in coronary artery (~02/17/06) Pure hypercholesterolemia Type 2 diabetes mellitus Home Medications fenofibrate nanocrystallized 145 mg PO QHS 11/30/14 [History Last Taken 08/19/21] qfdjutcn-tzq-EY-lycopen-lutein 1 ea PO DAILY 11/30/14 [History Last Taken 08/19/21] omega-3 fatty acids 500 mg PO DAILY 11/30/14 [History Last Taken 08/19/21] sitagliptin 100 mg PO DAILY 11/30/14 [History Last Taken 08/19/21] tamsulosin 0.4 mg PO DAILY #30 cap 12/05/14 [Rx Last Taken 08/19/21] aspirin 81 mg tablet,delayed release 81 mg PO DAILY 03/18/18 [History Last Taken 08/19/21] atorvastatin 80 mg tablet 80 mg PO QHS 03/18/18 [History Last Taken 08/19/21] finasteride 5 mg tablet 5 mg PO DAILY 03/18/18 [History Last Taken 08/19/21] losartan 25 mg tablet 25 mg PO DAILY 03/23/18 [History Last Taken 08/19/21] nitroglycerin 0.4 mg sublingual tablet 0.4 mg SUBLINGUAL Q5-15M PRN #25 tab MDD cp 04/27/19 [Rx Last Taken Unknown] dapagliflozin 10 mg tablet 10 mg PO QAM 04/13/20 [History Last Taken 08/19/21] metoprolol tartrate 100 mg tablet 50 mg PO BID tab 08/17/20 [History Last Taken 08/19/21] metformin 500 mg tablet,extended release 24 hr 500 mg PO DAILY tab 02/07/21 [History Last Taken 08/19/21] Allergy/AdvReac Type Severity Reaction Status Date / Time No Known Allergies Allergy Verified 02/07/21 09:27 Family History Father Cancer Mother No problems noted. Surgical History History of cataract extraction History of colonoscopy History of prostate surgery History of prostate surgery History of removal of cyst Presence of coronary angioplasty implant and graft (~02/17/06) S/P CABG x 3 (~1991) S/P PTCA (percutaneous transluminal coronary angioplasty) Social History Smoking Status: Current every day smoker tobacco type: cigarettes and cigars per week: 10 alcohol intake: never substance use type: does not use caffeine: Yes Type: coffee Number of servings: 3 seatbelt use: always do you feel safe at home: Yes ROS Constitutional Constitutional: Reports chills; Denies anorexia, fatigue, fever(s), malaise or weakness Cardiovascular Cardiovascular: Denies chest pain, palpitations or syncope Respiratory/Chest Respiratory/Chest: Reports chest congestion, cough, shortness of breath with exertion and wheezing Gastrointestinal Gastrointestinal: Reports diarrhea and vomiting; Denies abdominal pain, constipation or nausea Genitourinary Genitourinary: Denies dysuria Musculoskeletal Musculoskeletal: Denies back pain, extremity pain, joint pain or joint stiffness Integumentary Integumentary: Denies dry skin Neurologic Neurologic: Denies abnormal gait, abnormal speech, confusion or dizziness Psychiatric Psychiatric: Denies anxiety or depression Endocrine Endocrinology: Denies change in body appearance Hematologic/Lymphatic Hematologic/Lymphatic: Denies anemia, easy bleeding or easy bruising Vital Signs Vital Signs Vital Signs: 08/20/21 10:16 08/20/21 10:19 08/20/21 10:57 Temperature 98.3 F 98.3 F Temperature Source Oral Oral Pulse Rate 110 H 110 H 98 Respiratory Rate 23 H 23 H 20 H Respiratory Effort Short of Breath Respiratory Depth Deep Respiratory Pattern Tachypnea Normal Blood Pressure 107/64 107/64 Blood Pressure Mean 78 78 Pulse Ox 92 94 Oxygen Delivery Method Room Air Room Air Oxygen Flow Rate (L/min) 2 08/20/21 11:23 08/20/21 12:27 08/20/21 13:55 Temperature 97.6 F L 98.1 F Temperature Source Oral Oral Pulse Rate 108 H 106 H 108 H Respiratory Rate 20 H 20 H 28 H Respiratory Effort Respiratory Depth Respiratory Pattern Tachypnea Blood Pressure 122/63 H 127/63 H Blood Pressure Mean 82 84 Pulse Ox 97 97 Oxygen Delivery Method Nasal Cannula Oxygen Flow Rate (L/min) 2 2 08/20/21 14:18 08/20/21 15:25 08/20/21 15:53 Temperature 98.1 F 98.2 F 98.1 F Temperature Source Axillary Oral Oral Pulse Rate 102 H 117 H 116 H Respiratory Rate 17 27 H 25 H Respiratory Effort Respiratory Depth Respiratory Pattern Blood Pressure 132/79 H 110/51 L 130/57 H Blood Pressure Mean 96 70 81 Pulse Ox 95 94 95 Oxygen Delivery Method Nasal Cannula Nasal Cannula Oxygen Flow Rate (L/min) 2 2 2 Weight Weight: 154 lb 8.705 oz Body Mass Index (BMI) 23.5 Physical Exam Const alert, oriented x3 and no apparent distress General Appearance: cooperative HEENT normocephalic and head/scalp atraumatic Eyes conjunctivae normal and no scleral icterus Neck supple and no JVD General: trachea midline Resp normal respiratory effort and normal air movement Auscultation: wheezes expiratory wheezes, scattered wheezes and throughout and diminished lung sounds Cardio regular rate, regular rhythm, S1 normal heart sound, S2 normal heart sound and peripheral pulses 2+ throughout GI normal to inspection, nondistended, normoactive bowel sounds, soft to palpation and non-tender Extremity normal capillary refill and no clubbing, cyanosis or edema General Extremity: no tenderness to palpation of joints or extremities Skin General Skin Exam: no breakdown and turgor normal Lesions: no lesions Rashes: no rashes Neuro no focal motor deficits and no sensory deficits noted Speech: speech normal Motor Exam: Negative for general weakness Psych thought process normal, cooperative and affect normal Appearance: appropriate Results Lab / Micro Data Result Diagrams: 08/20/21 10:20 08/20/21 10:20 Labs: Laboratory Results - last 24 hr 08/20/21 10:20: WBC 15.0 H, RBC 5.27, Hgb 16.4, Hct 50.4, MCV 95.6 H, MCH 31.1, MCHC 32.5, RDW Std Deviation 50.4 H, RDW Coeff of Livan 14.3, Plt Count 251, MPV 10.5, Immature Gran % (Auto) 0.500, Neut % (Auto) 87.5 H, Lymph % (Auto) 6.5 L, [place] % (Auto) 5.2, Eos % (Auto) 0.0, Baso % (Auto) 0.3, Absolute Neuts (auto) 13.1 H, Absolute Lymphs (auto) 0.98, Nucleated RBC % 0 08/20/21 10:20: D-Dimer Quant (PE/DVT) 2.19 H* 08/20/21 10:20: Sodium 136, Potassium 3.9, Chloride 105, Carbon Dioxide 23.0, Anion Gap 8, BUN 23 H, Creatinine 1.32 H, Estim Creat Clear Calc 46.78, Est GFR (MDRD) Af Amer 68, Est GFR (MDRD) Non-Af 56 L, BUN/Creatinine Ratio 17.4, Glucose 220 H, Calcium 9.1, Total Bilirubin 0.50, AST 16, ALT 20, Alkaline Phosphatase 57, Total Protein 7.4, Albumin 3.5, Globulin 3.9, Albumin/Globulin Ratio 0.9 08/20/21 10:20: Lactic Acid 2.9 H* 08/20/21 15:08: Lactic Acid 2.9 H* Micro: Microbiology 08/20/21 12:30 Mucosa - Nasopharyngeal Respiratory Panel (PCR) - Final Rhinovirus 08/20/21 10:26 Nasal Secretion SARS-CoV-2 Antigen (Rapid) - Final Radiology Impression Chest CTA 08/20/21 11:13 IMPRESSION: No evidence of bone embolism. Emphysematous changes. 1.7 cm x 1.8 cm adenoma in the right atrium. Electronically Signed: Tico Oliva MD at 12:12 EDT , Service support , ADDENDUM: 08/20/21 1255 Assessment & Plan Assessment/Plan (1) COPD exacerbation: (2) Sepsis: QUALIFIERS: Sepsis acute organ dysfunction status: without acute organ dysfunction Sepsis type: sepsis due to unspecified organism Qualified Code(s): A41.9 - Sepsis, unspecified organism PLAN: 1. COPD exacerbation secondary to rhinovirus -Admit to [facility] -Patient received 1 dose doxycycline in ER, will order amoxicillin for inpatient -Encourage incentive spirometry -Droplet precautions ordered -PT and OT to eval and treat -CBC and BMP ordered -Scheduled DuoNeb nebulizer treatments ordered along with as needed albuterol -Solu-Medrol and Mucinex ordered 2. Sepsis -qSOFA score 1. -Patient tachycardic, tachypneic, WBC 15,000, Lactic acid 2.9 -Normal saline 75ml/hr -CBC and BMP daily 3. Diabetes Mellitus Type II -Hold home diabetic medications due to administration of IV contrast -ACHS blood sugars with SSI ordered -Hypoglycemia protocol ordered We will continue patient's home medications in relation to chronic diseases unless otherwise stated above. DVT prophylaxis-SQ lovenox This patient was seen by Chasidy Kim NP-C under the supervision of Dr. Gomez. Documented by User: Dr. Eric Gomez MD 08/20/21 18:18 HPI - General General Date of Admission: 08/20/21 HPI Narrative This 75-year-old gentleman with history of coronary artery status post CABG and COPD came to ER with shortness of breath, dry cough for 2 days. Patient came from camping and started feeling short of breath, sore throat and URI symptoms. Denies fever or chills, chest pain/tightness. And had PFT in July 2019 which shows partially reversible large airway obstructive ventilatory defect. DLCO normal. Patient follows Dr. Schmidt in general for coronary artery disease status post CABG in 1991 and SHARAD in 2005. The patient had chest CTA which did not show any evidence of pulmonary embolism but emphysematous changes with no new infiltrates. 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 cardiomyopathy Other [facility]p (current) drug therapy Presence of stent in coronary artery (~02/17/06) Pure hypercholesterolemia Type 2 diabetes mellitus Home Medications fenofibrate nanocrystallized 145 mg PO QHS 11/30/14 [History Last Taken 08/19/21] ykowejsc-mby-QN-lycopen-lutein 1 ea PO DAILY 11/30/14 [History Last Taken 08/19/21] omega-3 fatty acids 500 mg PO DAILY 11/30/14 [History Last Taken 08/19/21] sitagliptin 100 mg PO DAILY 11/30/14 [History Last Taken 08/19/21] tamsulosin 0.4 mg PO DAILY #30 cap 12/05/14 [Rx Last Taken 08/19/21] aspirin 81 mg tablet,delayed release 81 mg PO DAILY 03/18/18 [History Last Taken 08/19/21] atorvastatin 80 mg tablet 80 mg PO QHS 03/18/18 [History Last Taken 08/19/21] finasteride 5 mg tablet 5 mg PO DAILY 03/18/18 [History Last Taken 08/19/21] losartan 25 mg tablet 25 mg PO DAILY 03/23/18 [History Last Taken 08/19/21] nitroglycerin 0.4 mg sublingual tablet 0.4 mg SUBLINGUAL Q5-15M PRN #25 tab MDD cp 04/27/19 [Rx Last Taken Unknown] dapagliflozin 10 mg tablet 10 mg PO QAM 04/13/20 [History Last Taken 08/19/21] metoprolol tartrate 100 mg tablet 50 mg PO BID tab 08/17/20 [History Last Taken 08/19/21] metformin 500 mg tablet,extended release 24 hr 500 mg PO DAILY tab 02/07/21 [History Last Taken 08/19/21] Allergy/AdvReac Type Severity Reaction Status Date / Time No Known Allergies Allergy Verified 02/07/21 09:27 Family History Father Cancer Mother No problems noted. Surgical History History of cataract extraction History of colonoscopy History of prostate surgery History of prostate surgery History of removal of cyst Presence of coronary angioplasty implant and graft (~02/17/06) S/P CABG x 3 (~1991) S/P PTCA (percutaneous transluminal coronary angioplasty) Social History Smoking Status: Current every day smoker tobacco type: cigarettes and cigars per week: 10 alcohol intake: never substance use type: does not use caffeine: Yes Type: coffee Number of servings: 3 seatbelt use: always do you feel safe at home: Yes Physical Exam Narrative General: Alert, Oriented x3, Cooperative HEENT: Atraumatic, PERRLA, EOMI, Normocephalic Oral: No Gingival or Mucosal Lesions/ Ulcerations Neck: Supple, No JVD, Negative Carotid Bruits Lungs: Air entry diminished in bilateral lungs. Bilateral rhonchi and diffuse wheezing present. No respiratory distress. Cardiovascular: Regular rate, Regular Rhythm, Normal S1, Normal S2, No murmurs Abdomen: Bowel Sounds Present, Soft, Non Tender, Non-Distended : No renal angle tenderness. No suprapubic tenderness. Extremities: No edema, Capillary Refill Less than 3 Seconds Skin: No rashes, No breakdown Musculoskeletal: No Tenderness to Palpation of Joints or Extremities Neurological: Cranial nerves II-XII grossly intact, DTR 2+/4 and Symmetrical, Neuro grossly intact Psych/Mental Status: Normal Affect, Appropriate. Results Lab / Micro Data Result Diagrams: 08/20/21 10:20 08/20/21 10:20 Assessment & Plan Assessment/Plan (1) COPD exacerbation: (2) Sepsis: QUALIFIERS: Sepsis acute organ dysfunction status: without acute organ dysfunction Sepsis type: sepsis due to unspecified organism Qualified Code(s): A41.9 - Sepsis, unspecified organism PLAN: This patient was seen in conjunction with THOMAS Umaña. I have in dependently interviewed and examined the patient and reviewed pertinent history, examination findings, laboratory and plan of management. I have reviewed the note and agree with the documented findings with the few additional points. In brief, patient is admitted for COPD exacerbation secondary to rhinovirus acute bronchitis. Lactic acid elevated and patient has tachypnea and tachycardia therefore satisfies severe sepsis due to COPD exacerbation. Patient is hemodynamically and clinically looks stable therefore admitted in PCU stepdown because of only 1 bed available in ICU. Discussed with nursing warehouse technician. On DuoNeb, IV Solu-Medrol, Zithromax. Patient had moderna vaccine. Rapid Covid antigen negative. Patient is smokes 4 cigarettes daily and advised to quit. Patient declined nicotine patch offered. Coronary artery disease status post CABG and stent: Patient does not have chest pain. Continue home cardiac medications. Diabetes mellitus type 2: Accu-Chek insulin coverage blood sliding scale. Continue IV fluid normal saline. Living will/advanced directive/end of life care: Patient does have living will or advanced directive. After discussion of benefits/risks procedures involved with full code, DNR CC arrest and DNR CC, the patient and his near the bedside opted for full code Patient does want artificial life support including intubation, tube feed, ventilator and/chest compression, central venous catheter, vasopressor and DC shock if needed Total time spent in [id number] encounter in discussion of advanced directive 16 minutes. I have discussed my assessment with THOMAS Umaña and orders have been reviewed. Charges/Coding Visit Charges Inpatient E&M: 76782 Init Hosp L3 Procedures Hospitalists Procedures: 45811 Advncd Care Plan 30 Min
[2021-08-20] MEDS: 0.9% Saline Lock 10 ML Syringe IV ×2 (19:19→20:54)
[2021-08-20] MEDS: 0.9% Normal Saline 1,000 ML 100 ML IV (19:20)
--- NOTE | 2021-08-20 19:48 | PCS.PANDOC ---
PANDEMIC DOCUMENTATION INITIATED: Date: 08/20/2021 Time: 8372
[2021-08-20] MEDS: Metoprolol Tartrate 50 MG Tablet PO (20:53)
[2021-08-20] MEDS: Insulin Lispro 100 UNIT/ML INSULN.PEN SC (20:53)
[2021-08-20] MEDS: Atorvastatin Calcium 80 MG Tablet PO (20:53)
[2021-08-20] MEDS: guaiFENesin 1,200 MG Tablet 1200 MG PO (20:54)
[2021-08-20] MEDS: Fenofibrate 145 MG Tablet PO (20:55)
[2021-08-20 21:05] LABS: Bedside Glucose 354 mg/dL (70-110)
[2021-08-21] VITALS (8 sets, daily range): BP systolic 106–119; BP diastolic 48–65; PULSE 71–95; RESP 16–20; TEMP 36.7–37; O2SAT 93–97
[2021-08-21] MEDS: 0.9% Normal Saline 1,000 ML 100 ML IV (05:48)
[2021-08-21 05:50] LABS: Absolute Lymphocyte Count 0.85 X10^3/uL (0.83-4.51); Absolute Neutrophil Count 9.4 X10^3/uL (2.0-7.7); Basophil# 0.02 X10^3/uL; Basophil% 0.2 % (0-1); Hematocrit 42.9 % (40-54); Hemoglobin 14.4 g/dL (13.0-16.5); Lymphocyte # 0.85 X10^3/ul (0.83-4.51); Lymphocyte % 7.9 % (19-41); Mean Corp Hgb Conc 33.6 g/dL (32-36); Mean Corpuscular Hgb 31.6 pg (27.0-32.0); Mean Corpuscular Volume 94.1 fL (80-94); Mean Platelet Vol. 10.3 fl (6.2-12.0); Monocyte# 0.45 X10^3/uL; Monocyte% 4.2 % (0-10); NRBC Flagged by Analyzer 0 % (0-5); Neutrophil # 9.35 X10^3/uL (2.7-7.7); Platelet Count 209 K/mm3 (150-450); RBC Distribution Width CV 14.5 % (11.6-14.6); RBC Distribution Width SD 50.5 fl (35.1-43.9); Red Blood Count 4.56 M/mm3 (4.6-6.2); White Blood Count 10.8 K/mm3 (4.4-11.0)
[2021-08-21 06:08] LABS: Anion Gap 6 (5-15); BUN 32 mg/dL (7-18); BUN/Creat Ratio 31.4 RATIO (10-20); Calcium,Total 8.7 mg/dL (8.5-10.1); Chloride 112 mmol/L (98-107); Creatinine, Serum 1.02 mg/dL (0.70-1.30); EST Glomerular Filtration Rate 76 mL/min (>60); Est Glom Filt Rate - Afr Amer 91 mL/min (>60); Estimated Creatinine Clearance 60.54 ml/min; Glucose 196 mg/dL (74-106); Potassium 4.1 mmol/L (3.5-5.1); Sodium Level 138 mmol/L (136-145)
[2021-08-21] MEDS: Insulin Lispro 100 UNIT/ML INSULN.PEN SC ×2 (06:52→12:51)
[2021-08-21 07:15] LABS: Bedside Glucose 195 mg/dL (70-110)
[2021-08-21] MEDS: Ipratropium/Albuterol Sulfate 3 ML AMPUL.NEB INHALATION ×3 (07:23→15:21)
[2021-08-21] MEDS: Multivitamins,Ther W-Minerals Tablet 1 TABLET PO (08:26)
[2021-08-21] MEDS: Losartan Potassium 25 MG Tablet PO (08:27)
[2021-08-21] MEDS: Tamsulosin HCl 0.4 MG Capsule PO (08:27)
[2021-08-21] MEDS: Metoprolol Tartrate 50 MG Tablet PO (08:27)
[2021-08-21] MEDS: Aspirin E.C. 81 MG Tablet PO (08:27)
[2021-08-21] MEDS: Finasteride 5 MG Tablet PO (08:28)
[2021-08-21] MEDS: Enoxaparin 40 MG/0.4 ML Syringe SC (08:28)
[2021-08-21] MEDS: guaiFENesin 1,200 MG Tablet 1200 MG PO (08:28)
[2021-08-21] MEDS: Azithromycin 250 MG Tablet 500 MG PO (08:29)
[2021-08-21 13:06] LABS: Bedside Glucose 324 mg/dL (70-110)
--- NOTE | 2021-08-21 14:21 | CHAPLAIN ---
Type of Pastoral Visit _x__ Initial Visit ___ Follow-up Visit ___ On-call Visit ___ General Patient Visit ___ Spiritual Assessment ___ Family Conference ___ Bereavement ___ Rapid Response ___ Code Blue ___ Other (describe below) Pastoral Care Referral From _x__ Patient ___ Family ___ Nurse ___ Physician ___ Material Liaison ___ Geomagnetician ___ Other (describe below) Sacrament/Intervention _x__ Active listening ___ Anointing ___ Episcopalian ___ Bereavement ___ Communion _x__ Cathy exploration ___ _x__ Life review _x__ Prayer ___ Reconciliation ___ Sacrament of Sick _x__ Supportive presence ___ Wedding ___ Other (describe below) Pastoral Comments patient and spouse waiting for meeting with DR for prognosis and discussion; pt gives some life review; pt is involved in [facility] [employer]; prayer and presence
--- NOTE | 2021-08-21 14:45 | CASEMGMT ---
RN CM PRODUCTION GRIP CM to room to meet with patient for initial transition planning/care coordination assessment. RN KANA introduced self and role at [facility]. Pt voices understanding and consents to assessment at this time. Pt sitting up in chair in room in no distress at this time. @ bedside. Pt is A/O at this time and answers all questions appropriately. Care providers, pharmacy, and demographics verified/updated at this time. PCP: Dr Bates Specialists: Dr Schmidt--cardiology, Dr Eddy--urology Preferred Pharmacy: [facility] Retail Insurance: MCR, MMO Prescription Benefit: Yes Living Will/HPOA: Pt has both LW and HPOA, who is his , Teresa LNOK: , Teresa Living Arrangements: Lives w/his , Teresa, in split-level home w/3-4 steps to enter. Denies difficulty w/stairs. Independent. Transportation: Pt states drives self and states no transportation concerns at this time. also drives DME: Denies using any DME and denies needs. HHC/SNF: No history of either. No needs identified. Has been to Cardiac Rehab in the past Pt wishes to return home and states has no concerns with going home at time of discharge. CM to follow for any discharge planning/needs. Pt voices no concerns/needs at this time. Advised pt to ask for CM if any questions/concerns/needs arise. Voices understanding. PLAN: Home w/family support and discharge plans in place. Marianne GODINEZ RN, CM
--- NOTE | 2021-08-21 14:51 | PCM.DC ---
Discharge Instructions Diet Discharge Diet: 1800 Calorie Control Diet Activity Discharge Activity: Return to Normal Activity Weight Bearing Status: Full weight bearing Follow Up Care Test Results: Test results from this visit will be discussed in further detail at your follow-up appointment, if applicable. Discharge Plan Admission Admit Date/Time: 08/20/21 16:41 Primary Reason for Your Visit: bronchitis Attending Provider: Lázaro Jerez Primary Care Provider: Becca Bates Discharge Orders/Prescriptions Prescriptions: New azithromycin 250 mg Tablet 500 mg PO Q24 Qty: 2 RF: 0 albuterol sulfate [Ventolin HFA] 90 mcg/actuation HFA aerosol inhaler 2 puff inhalation UD PRN (Reason: shortness of breath or wheezing) Qty: 8.5 RF: 0 Continued losartan 25 mg tablet 25 mg PO DAILY RF: 0 aspirin [Adult Low Dose Aspirin] 81 mg tablet,delayed release (DR/EC) 81 mg PO DAILY RF: 0 atorvastatin 80 mg tablet 80 mg PO QHS RF: 0 finasteride 5 mg tablet 5 mg PO DAILY RF: 0 nitroglycerin [Nitrostat] 0.4 mg tablet, sublingual 0.4 mg SUBLINGUAL Q5-15M MDD cp PRN (Reason: chest pain) Qty: 25 RF: 1 Farxiga 10 mg tablet 10 mg PO QAM RF: 0 metformin 500 mg tablet extended release 24 hr 500 mg PO DAILY RF: 0 njpysine-tvr-XL-lycopen-lutein 1 EACH tablet 1 ea PO DAILY RF: 0 fenofibrate nanocrystallized 145 MG tablet 145 mg PO QHS RF: 0 sitagliptin 100 MG tablet 100 mg PO DAILY RF: 0 omega-3 fatty acids 500 MG capsule 500 mg PO DAILY RF: 0 metoprolol tartrate 100 mg tablet 50 mg PO BID RF: 0 tamsulosin 0.4 MG capsule 0.4 mg PO DAILY Qty: 30 RF: 0 Referrals / Follow Up: Becca Bates DO [Primary Care Provider] - Within 1 Week Disposition Disposition (needs filled in before D/C Order can be placed): Home, Self Care
--- NOTE | 2021-08-22 19:57 | PCM.DC.SUM ---
Providers Date of Admission: 08/20/21 Date of Discharge: 08/21/21 Primary Care Physician: Dr. Becca Bates DO Reason For Visit: COPD EXACERBATION Diagnosis Discharge Diagnosis (1) COPD exacerbation: Status: Chronic Code(s): J44.1 - Chronic obstructive pulmonary disease with (acute) exacerbation (2) Sepsis: Status: Acute Code(s): A41.9 - Sepsis, unspecified organism Qualifiers: Sepsis acute organ dysfunction status: without acute organ dysfunction Sepsis type: sepsis due to unspecified organism Qualified Code(s): A41.9 - Sepsis, unspecified organism Plan: 1. Acute tracheobronchitis with hyperactive airway disease secondary to rhinovirus infection #2 chronic obstructive pulmonary disease #3 type 2 diabetes #4 hyperlipidemia #5 essential hypertension #6 coronary artery disease #7 acute hypoxic respiratory failure secondary to #1 Patient did not have an exacerbation of chronic obstructive pulmonary disease Medications at Discharge Home Medications fenofibrate nanocrystallized 145 mg PO QHS 11/30/14 kgggxmuu-rtw-QK-lycopen-lutein 1 ea PO DAILY 11/30/14 omega-3 fatty acids 500 mg PO DAILY 11/30/14 sitagliptin 100 mg PO DAILY 11/30/14 tamsulosin 0.4 mg PO DAILY #30 cap 12/05/14 aspirin 81 mg tablet,delayed release 81 mg PO DAILY 03/18/18 atorvastatin 80 mg tablet 80 mg PO QHS 03/18/18 finasteride 5 mg tablet 5 mg PO DAILY 03/18/18 losartan 25 mg tablet 25 mg PO DAILY 03/23/18 nitroglycerin 0.4 mg sublingual tablet 0.4 mg SUBLINGUAL Q5-15M PRN #25 tab MDD cp 04/27/19 dapagliflozin 10 mg tablet 10 mg PO QAM 04/13/20 metoprolol tartrate 100 mg tablet 50 mg PO BID tab 08/17/20 metformin 500 mg tablet,extended release 24 hr 500 mg PO DAILY tab 02/07/21 albuterol sulfate [Ventolin HFA] 2 puff INHALATION UD PRN #8.5 g 08/21/21 azithromycin 500 mg PO Q24 #2 tab 08/21/21 Hospital Course Operations None Procedures None Summary of Care Provided Minutes Spent on Discharge: 32 Hospital Course: Patient is 75-year-old white male who was seen in the emergency room at [facility] with 2-day history of cough and shortness of breath, the cough has been nonproductive. Work-up in the emergency room included a Covid test which was negative, patient had a respiratory panel performed which was positive for rhinovirus. Patient required supplemental oxygen to maintain his pulse ox above 90%. Patient's white blood cell count was elevated at 15,000. A chest CTA was obtained which showed emphysematous changes but no pulmonary emboli. Patient was given a DuoNeb treatment in the emergency room, he was admitted for exacerbation of COPD-this examiner did not feel the patient had an exacerbation of COPD but reactive airway disease from rhinovirus tracheobronchitis. Patient was given aerosol treatments and IV corticosteroids during his hospital stay, he was weaned off oxygen by the next day. Patient was seen and examined on 08/21/2021: On examination he appeared in good health and spirits. Vital signs as documented. Skin warm and dry and without overt rashes. Neck without JVD, neck was supple, trachea midline, thyroid was normal. Lungs clear bilaterally, normal air movement was noted. Heart exam notable for regular rhythm, normal sounds and absence of murmurs, rubs or gallops. Abdomen unremarkable and without evidence of organomegaly, masses, or abdominal aortic enlargement. Bowel sounds are present, abdomen is not distended. Extremities nonedematous, no cyanosis was noted, no clubbing was noted. Neuro: Cranial nerves II through XII are grossly intact, no focal motor deficits were noted, sensation to light touch and pinprick intact, motor exam 5/5 throughout. Psych: Patient is alert and oriented x3, he does not appear anxious or depressed, he does not appear agitated. Patient appeared stable for discharge on 08/21/2021. Weight / BMI Weight Weight: 70.1 kg Body Mass Index (BMI) 23.5 ABG / Lab / Microbiology Data Result Diagrams: 08/21/21 05:36 08/21/21 05:36 Microbiology: Microbiology 08/21/21 11:27 Sputum, Expectorated/Coughed Gram Stain - Final 08/21/21 11:27 Sputum, Expectorated/Coughed Respiratory Culture - Preliminary Appears to be normal respiratory jacey. Further studies to follow. 08/20/21 11:49 Blood Culture (Wb) - Anticubital Right Blood Culture - Preliminary No growth in 48 hours. 08/20/21 10:20 Blood Culture (Wb) - Anticubital Left Blood Culture - Preliminary No growth in 48 hours. 08/20/21 12:30 Mucosa - Nasopharyngeal Respiratory Panel (PCR) - Final Rhinovirus 08/20/21 10:26 Nasal Secretion SARS-CoV-2 Antigen (Rapid) - Final D/C Instructions Discharge Diet: 1800 Calorie Control Diet Weight Bearing Status: Full weight bearing Meaningful Use Info Meaningful Use Diagnoses (Choose all that apply): None applicable Discharge Plan Admission Admit Date/Time: 08/20/21 16:41 Primary Reason for Your Visit: bronchitis Attending Provider: Lázaro Jerez Primary Care Provider: Becca Bates Discharge Orders/Prescriptions Prescriptions: New azithromycin 250 mg Tablet 500 mg PO Q24 Qty: 2 RF: 0 albuterol sulfate [Ventolin HFA] 90 mcg/actuation HFA aerosol inhaler 2 puff inhalation UD PRN (Reason: shortness of breath or wheezing) Qty: 8.5 RF: 0 Continued losartan 25 mg tablet 25 mg PO DAILY RF: 0 aspirin [Adult Low Dose Aspirin] 81 mg tablet,delayed release (DR/EC) 81 mg PO DAILY RF: 0 atorvastatin 80 mg tablet 80 mg PO QHS RF: 0 finasteride 5 mg tablet 5 mg PO DAILY RF: 0 nitroglycerin [Nitrostat] 0.4 mg tablet, sublingual 0.4 mg SUBLINGUAL Q5-15M MDD cp PRN (Reason: chest pain) Qty: 25 RF: 1 Farxiga 10 mg tablet 10 mg PO QAM RF: 0 metformin 500 mg tablet extended release 24 hr 500 mg PO DAILY RF: 0 uvmxzwgr-qdr-[place]-lycopen-lutein 1 EACH tablet 1 ea PO DAILY RF: 0 fenofibrate nanocrystallized 145 MG tablet 145 mg PO QHS RF: 0 sitagliptin 100 MG tablet 100 mg PO DAILY RF: 0 omega-3 fatty acids 500 MG capsule 500 mg PO DAILY RF: 0 metoprolol tartrate 100 mg tablet 50 mg PO BID RF: 0 tamsulosin 0.4 MG capsule 0.4 mg PO DAILY Qty: 30 RF: 0 Referrals / Follow Up: Becca Bates DO [Primary Care Provider] - Within 1 Week Disposition Disposition (needs filled in before D/C Order can be placed): Home, Self Care Charges/Coding Visit Charges Inpatient E&M: 48296 Disch Hosp
== END 2021-08-21 16:12 | disposition home or self-care (01) | DRG 871 ==
LOC: ED 16:10 → MS2 17:17
PROVIDERS: Nurse Practitioner Family; Admitting Provider Internal Medicine; Emergency Provider Emergency Medicine; PCP Internal Medicine; Visit Provider Internal Medicine
DX: A41.89 Other specified sepsis (principal); J96.01 Acute respiratory failure with hypoxia; J44.0 Chronic obstructive pulmonary disease with (acute) lower respiratory infection; J20.6 Acute bronchitis due to rhinovirus; E78.5 Hyperlipidemia, unspecified; I12.9 Hypertensive chronic kidney disease with stage 1 through stage 4 chronic kidney disease, or unspecified chronic kidney disease; N18.9 Chronic kidney disease, unspecified; I25.10 Atherosclerotic heart disease of native coronary artery without angina pectoris; Z79.899 Other long term (current) drug therapy; Z79.84 Long term (current) use of oral hypoglycemic drugs; Z79.82 Long term (current) use of aspirin; I25.5 Ischemic cardiomyopathy; E11.22 Type 2 diabetes mellitus with diabetic chronic kidney disease; Z95.1 Presence of aortocoronary bypass graft; F17.210 Nicotine dependence, cigarettes, uncomplicated
CPT/HCPCS: 36415; 71275; 80048; 80053; 82962; 83605; 85025; 85379; 87040; 87070; 87077; 87186; 87205; 87426; 87633; 93005; 94640; 94762; 97162; 99251; 99285; J7030; Q9967; A4216; G0463

== ENCOUNTER → 2022-10-13 | Outpatient (CLI) | payer MEDICARE, OTHER, SELFPAY ==
[2022-10-13 16:01] LABS: PSA,Total - Annual Screen 0.51 ng/mL (0.00-4.00)
== END | disposition home or self-care (01) ==
LOC: LAB 15:00
PROVIDERS: PCP Internal Medicine; Referring Provider Urology; Visit Provider Urology
DX: Z12.5 Encounter for screening for malignant neoplasm of prostate (principal)
CPT/HCPCS: 36415; 84153; G0103

== ENCOUNTER → 2022-10-16 | Outpatient (CLI) | payer MEDICARE, OTHER, SELFPAY ==
--- NOTE | 2022-10-17 11:01 | PFT ---
INTRODUCTION: The patient is a 76-year-old male that presents for pulmonary function studies secondary to a diagnosis of COPD. Respiratory therapy reported good patient effort. Bronchodilators were used during testing. INTERPRETATION: Forced expiration spirometry demonstrates the presence of a mild large airways obstructive ventilatory defect. There was a significant response to aerosolized bronchodilators. Spirograms are of good quality and plateau gradually indicating slow emptying of the lungs. Body plethysmography was performed and demonstrated a decreased TLC to 4.54 L, 76% of predicted, indicative of a mild restrictive ventilatory impairment. Diffusing capacity by single breath CO was within normal limits. IMPRESSION: Partially reversible mild mixed ventilatory defect with preserved diffusing capacity.
== END | disposition home or self-care (01) ==
LOC: PSN 09:49
PROVIDERS: PCP Internal Medicine; Visit Provider Internal Medicine
DX: J44.9 Chronic obstructive pulmonary disease, unspecified (principal)
CPT/HCPCS: 94060; 94726; 94729

== ENCOUNTER → 2023-05-01 | Outpatient (CLI) | payer MEDICARE, OTHER, SELFPAY ==
[2023-05-01 12:52] LABS: Potassium 5.2 mmol/L (3.5-5.1)
== END | disposition home or self-care (01) ==
PROVIDERS: PCP Internal Medicine; Visit Provider Internal Medicine
DX: E11.65 Type 2 diabetes mellitus with hyperglycemia (principal)
CPT/HCPCS: 84132

== ENCOUNTER → 2023-09-03 | Outpatient (CLI) | payer MEDICARE, OTHER, SELFPAY ==
--- NOTE | 2023-09-03 06:22 | CT_ITS ---
STUDY: LOW DOSE CT LUNG CANCER SCREENING REASON FOR EXAM: Male, 77 years old. Current smoker. 15 pack-year history. RADIATION DOSAGE (If Supplied By Facility): CTDIvol = ( 2.01 ) mGy, DLP = ( 65.19 ) mGycm TECHNIQUE: No contrast was administered. Low dose technique was utilized (average mAS-38 and kVp 120). 1.25 mm axial source images with a slice interval of 1.25-mm were reconstructed in lung windows. 2.5 mm axial source images with a slice interval of 2.5-mm were reconstructed in lung windows. 5.0 mm axial source images with a slice interval of 5.0-mm were reconstructed in soft tissue windows. COMPARISON: Comparison is made with prior study dated August 20, 2021. NODULES: No suspicious nodules are seen. Emphysema: Minimal linear scarring at the left lung base. Endobronchial lesion: None Aorta: Atherosclerotic plaque formation of the aortic arch. CORONARY ARTERIES: Coronary artery calcification is seen. Prior CABG. Heart: Unremarkable Pulmonary artery: Unremarkable Mediastinal nodes: Small mediastinal lymph nodes. Other chest and abdominal findings: CT/Low Dose CT Lung Screening IMPRESSION: Lung-RADS category 2 - Continue annual screening with LDCT in 12 months. IMPORTANT NOTES FOR USE: ACR Lung-RADS Version 1.1 Assessment Categories Release Date: 2018 Category: Coded 0-4 bases on nodule(s) with highest degree of suspicion. Negative screen is defined as categories 1 and 2; a positive screen is defined as categories 3 and 4. Category 3 and 4A nodules that are unchanged on interval CT should be coded as category 2, and individuals returned to screening in 12 months. Category 4X: Category 3 or 4 nodules with additional imaging findings that increase the suspicion of lung cancer, such as spiculation, GGN that doubles in size in 1 year, enlarged lymph notes, etc. Category Modifiers: S (significant finding unrelated to lung cancer) Electronically Signed: Tico Oliva MD at 13:43 EDT ,
--- NOTE | 2023-09-03 12:42 | STRESSREP_ITS ---
Stress Test Report Date: 09/03/2023 Procedure: Exercise tolerance test/imaging study Indications: History of CAD Consent: Per the patient Procedure: The patient exercised on a Trever protocol for 6 minutes and 10 seconds achieving a peak heart rate of 114 bpm (79% predicted maximal heart rate) with a peak blood pressure 122/70 mmHg and a peak MET capacity of 7.5 METs. The baseline ECG demonstrated sinus rhythm with possible old anterior [place]. The peak exercise ECG demonstrated no ischemic changes. There were no cardiac dysrhythmias pretest, during exercise, or recovery. The functional capacity was considered average for age. There was no complaint of chest discomfort during exercise or recovery. The examination was discontinued secondary to leg fatigue and shortness of breath. The patient was injected with 10.8 mCi of technetium 99m Cardiolite and subsequently rest SPECT Cardiolite nuclear imaging was obtained in the horizontal long, vertical long, and short axis views. Post-exercise, the patient was injected with 32.7 mCi of technetium 99m Cardiolite and subsequently stress SPECT Cardiolite nuclear imaging was obtained in the horizontal long, vertical long, and short axis views. A gated Cardiolite study at peak stress was obtained. Rest and stress SPECT Cardiolite nuclear imaging status post realignment, normalization, and attenuation correction, demonstrates reduced perfusion of the anterior wall and apex with minimal worsening postexercise. 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 There is mildly reduced perfusion of the basal septum postexercise suggestive of mild basal septal ischemia. The gated Cardiolite study demonstrates severe hypokinesis of the anterior wall and apex. The reported LVEF is 34%. Impression: 1. 79% of maximal predicted heart rate achieved. 2. Peak exercise ECG with no ischemic changes 3. There were no cardiac dysrhythmias pretest, during exercise, or recovery 4. Rest and stress SPECT Cardiolite nuclear imaging demonstrate prior anterior and apical infarct with minimal ara-infarct ischemia. Mild basal septal reversible ischemia is noted.. 5. The gated Cardiolite study reports an LVEF of 34%. This note was generated with Mailpileation software. It may contain incorrect words, spelling, and punctuation that were not noted in checking the note before signing.
== END | disposition home or self-care (01) ==
LOC: CT 06:18
PROVIDERS: PCP Internal Medicine; Referring Provider Internal Medicine; Visit Provider Internal Medicine
DX: Z12.2 Encounter for screening for malignant neoplasm of respiratory organs (principal); R68.89 Other general symptoms and signs; R06.09 Other forms of dyspnea; Z87.891 Personal history of nicotine dependence
CPT/HCPCS: 71271; 78452; 93017; A9500; A4216

== ENCOUNTER → 2023-10-23 | Outpatient (CLI) | payer MEDICARE, OTHER, SELFPAY ==
--- NOTE | 2023-10-23 08:56 | CDU_ITS ---
Reason For Study: Bilateral Carotid Stenosis Rt. Velocities/BP Lt. Velocities/BP Subclavian artery 79.0/0.0 cm/sec. Subclavian artery 89.3/0.0 cm/sec. Prox CCA 96.5/13.0 cm/sec. Prox CCA 79.3/16.7 cm/sec. Mid CCA 73.2/14.2 cm/sec. Mid CCA 79.3/16.7 cm/sec. Dist CCA 65.8/16.7 cm/sec. Dist CCA 59.7/13.0 cm/sec. Prox ICA 175.2/43.0 cm/sec. Prox ICA 41.5/10.1 cm/sec. Mid ICA 68.8/18.2 cm/sec. Mid ICA 62.1/20.1 cm/sec. Dist ICA 62.2/20.4 cm/sec. Dist ICA 66.0/21.2 cm/sec. Rt. ICA/CCA = 2.4. Lt. ICA/CCA = 0.8. Prox ECA 87.5/5.1 cm/sec. Prox ECA 80.9/4.8 cm/sec. Rt. Vert. 19.4/0.0 cm/sec. Lt. Vert. 70.9/20.3 cm/sec. Right Extracranial There is intimal thickening but no significant atherosclerotic plaque noted in the right common carotid artery. There is heterogeneous, irregular atherosclerotic plaque noted in the right internal carotid artery. There is intimal thickening but no significant atherosclerotic plaque noted in the right external carotid artery. abnormal waveform noted. Left Extracranial There is homogeneous, smooth atherosclerotic plaque noted in the left common carotid artery. There is heterogeneous, irregular atherosclerotic plaque noted in the left internal carotid artery. There is intimal thickening but no significant atherosclerotic plaque noted in the left external carotid artery. Antegrade flow is noted in the left vertebral artery. Procedure Carotid Duplex [id number]. This is a Carotid Duplex examination using B-mode, color flow and specral Doppler. The exam was diagnostic. Exam performed in department. VL/Carotid Duplex Ultrasound Interpretation Summary Moderate (50-69%) stenosis right extracranial internal carotid. Mild (<50%) stenosis left extracranial internal carotid. The Left vertebral is patent and antegrade. Right vertebral artery with high resistance flow pattern Ordering Physician: Becca Bates Referring Physician: Becca Bates M.D. Performed By: Enrico West RVT
== END | disposition home or self-care (01) ==
LOC: CVS 08:54
PROVIDERS: PCP Internal Medicine; Visit Provider Internal Medicine
DX: I65.23 Occlusion and stenosis of bilateral carotid arteries (principal)
CPT/HCPCS: 93880

== ENCOUNTER → 2023-11-16 | Outpatient (CLI) | payer MEDICARE, OTHER, SELFPAY ==
[2023-11-16 15:13] LABS: PSA,Total- Diagnostic 0.48 ng/mL (0.0-4.0)
== END | disposition home or self-care (01) ==
LOC: LAB 13:32
PROVIDERS: PCP Internal Medicine; Referring Provider Urology; Visit Provider Urology
DX: N40.1 Benign prostatic hyperplasia with lower urinary tract symptoms (principal)
CPT/HCPCS: 36415; 84153

== ENCOUNTER → 2024-01-07 | Outpatient (CLI) | payer MEDICARE, SELFPAY ==
--- NOTE | 2024-01-07 07:56 | ECHOD_ITS ---
Reason For Study: CAD/ASHD Procedure This was a 2D Doppler, Color Flow transthoracic echocardiogram. Exam performed in department. Left Ventricle Normal size and thickness. Mild global left ventricular systolic dysfunction. The left ventricular ejection fraction is 45 %. Stage 1 diastolic dysfunction. Right Ventricle Normal right ventricle. Atria The left and right atria are normal. Mitral Valve Moderate (2+) posteriorly directed mitral valve insufficiency. Tricuspid Valve Trivial tricuspid valve insufficiency. Aortic Valve Trisinus/trileaflet aortic valve. Mild (1+) aortic valve insufficiency. Pulmonic Valve The pulmonic valve is not well visualized. Great Vessels Normal sized aortic root. Pericardium/Pleural No pericardial effusion. MMode/2D Measurements & Calculations LVIDd: 5.9 cm IVSd: 1.0 cm Ao root diam: 3.2 cm LVIDs: 4.5 cm LVPWd: 1.00 cm RVDd: 2.8 cm FS: 22.7 % LAV(MOD-bp): 35.7 ml LVAd ap4: 30.1 cm2 LVAd ap2: 34.0 cm2 LAV(MOD-bp) Indexed: 19.9 ml/m2 LVLd ap4: 7.3 cm LVLd ap2: 8.7 cm LAV(MOD-sp2): 33.2 ml EDV(MOD-sp4): 100.9 ml EDV(MOD-sp2): 111.8 ml LAV(MOD-sp4): 30.8 ml EDV(sp4-el): 105.7 ml EDV(sp2-el): 113.4 ml LVAs ap4: 21.4 cm2 LVAs ap2: 24.0 cm2 LVLs ap4: 6.5 cm LVLs ap2: 7.9 cm ESV(MOD-sp4): 59.2 ml ESV(MOD-sp2): 61.0 ml ESV(sp4-el): 60.3 ml ESV(sp2-el): 61.8 ml EF(MOD-sp4): 41.3 % EF(MOD-sp2): 45.5 % EF(sp4-el): 42.9 % SV(MOD-sp4): 41.7 ml SV(MOD-sp2): 50.9 ml SV(sp4-el): 45.4 ml LA dimension(2D): 4.0 cm LA A4 area: 12.8 cm2 RA A4 area: 12.9 cm2 TAPSE: 1.7 cm Time Measurements MV dec time: 0.22 sec Doppler Measurements & Calculations MV E max stephen: 50.8 cm/sec Lat Peak E' Stephen: 7.6 cm/sec Med Peak E' Stephen: 8.2 cm/sec MV A max stephen: 83.0 cm/sec E/E' lat: 6.7 E/E' med: 6.2 MV E/A: 0.61 MV V2 max: 87.2 cm/sec MV P1/2t max stephen: 53.2 cm/sec Ao V2 max: 96.0 cm/sec MV max P.0 mmHg MV P1/2t: 91.1 msec Ao max P.7 mmHg MV V2 mean: 49.5 cm/sec MV dec slope: 170.9 cm/sec2 Ao V2 mean: 65.9 cm/sec MV mean P.1 mmHg Ao mean P.0 mmHg MV V2 VTI: 16.3 cm MVA(P1/2t): 2.4 cm2 Ao V2 VTI: 25.9 cm AV (velocity ratio): 0.62 LV V1 max: 72.0 cm/sec PA V2 max: 48.1 cm/sec TR max stephen: 219.4 cm/sec LV V1 max P.1 mmHg PA V2 mean: 36.9 cm/sec TR max P.3 mmHg LV V1 mean P.1 mmHg LV V1 mean: 47.7 cm/sec LV V1 VTI: 16.1 cm ECHO/Echo Complete Interpretation Summary The left ventricular ejection fraction is 40-45 %. Mild apical hypokinesis. Stage 1 diastolic dysfunction. Moderate (2+) posteriorly directed mitral valve insufficiency. Mild (1+) aortic valve insufficiency. Ordering Physician: Jasen Roa Referring Physician: Becca Bates Performed By: Vicky Dinero, TONA, RVT
== END | disposition home or self-care (01) ==
PROVIDERS: PCP Internal Medicine; Referring Provider Nurse Practitioner Family; Visit Provider Nurse Practitioner Family
DX: I25.5 Ischemic cardiomyopathy (principal); Z79.899 Other long term (current) drug therapy; Z95.5 Presence of coronary angioplasty implant and graft; Z95.1 Presence of aortocoronary bypass graft
CPT/HCPCS: 93306

== ENCOUNTER → 2024-06-28 | Outpatient (CLI) | payer MEDICARE, SELFPAY ==
[2024-06-28 12:10] LABS: Anion Gap 4 (5-15); BUN 22 mg/dL (7-18); BUN/Creat Ratio 19.6 RATIO (10-20); Calcium,Total 9.5 mg/dL (8.5-10.1); Chloride 109 mmol/L (98-107); Creatinine, Serum 1.12 mg/dL (0.70-1.30); EST Glomerular Filtration Rate 67 mL/min (>60); Est Glom Filt Rate - Afr Amer 81 mL/min (>60); Glucose 110 mg/dL (74-106); Potassium 4.7 mmol/L (3.5-5.1); Sodium Level 141 mmol/L (136-145)
== END | disposition home or self-care (01) ==
PROVIDERS: PCP Internal Medicine; Referring Provider Internal Medicine Cardiovascular Disease; Visit Provider Internal Medicine Cardiovascular Disease
DX: I25.5 Ischemic cardiomyopathy (principal)
CPT/HCPCS: 36415; 80048

== ENCOUNTER → 2024-11-15 | Outpatient (CLI) | payer MEDICARE, SELFPAY ==
[2024-11-15 15:13] LABS: PSA,Total - Annual Screen 0.79 ng/mL (0.00-4.00)
== END | disposition home or self-care (01) ==
LOC: LAB 14:14
PROVIDERS: PCP Internal Medicine; Referring Provider Urology; Visit Provider Urology
DX: Z12.5 Encounter for screening for malignant neoplasm of prostate (principal)
CPT/HCPCS: 36415; 84153; G0103

== ENCOUNTER 2024-12-02 22:48 | Emergency (ER) | payer MEDICARE, SELFPAY ==
[2024-12-02 22:49] VITALS: BP 145/88; PULSE 87; RESP 16; TEMP 36.6; O2SAT 98; BMI 21.2
[2024-12-02 22:51] VITALS: BP 145/88; PULSE 88; RESP 16; TEMP 36.6; O2SAT 99
--- NOTE | 2024-12-02 23:03 | US_ITS ---
EXAM: US DUPLEX RIGHT LOWER EXTREMITY VEINS CLINICAL INDICATION: PAIN/SWELLING/ REDNESS TO RT ANKLE/ FOOT TECHNIQUE: Real-time duplex ultrasound scan of the right lower extremity veins integrating B-mode two-dimensional vascular structure, Doppler spectral analysis, color flow Doppler imaging and compression. COMPARISON: No relevant prior studies available. FINDINGS: DEEP VEINS: Unremarkable. No DVT in the visualized common femoral, femoral, proximal deep femoral or popliteal veins. The veins demonstrate normal color flow, are normally compressible, with normal phasic flow and/or augmentation response. SUPERFICIAL VEINS: Unremarkable. No thrombus in the visualized great saphenous vein. SOFT TISSUES: No acute findings. No popliteal cyst. US/Venous Duplex Imag/Limited/Uni IMPRESSION: Normal right lower extremity duplex venous ultrasound. Electronically Signed: Fernando Pinto MD at 0:20 EST ,
--- NOTE | 2024-12-02 23:07 | EDS_ITS ---
HPI History of Present Illness Chief Complaint: Edema Informant: patient Narrative Narrative: Patient 79-year-old male with history of coronary artery disease, ischemic cardiomyopathy, claudication, CKD, hypertension and type 2 diabetes mellitus (on metformin, sitagliptin and dapagliflozin) presenting with atraumatic right ankle pain and foot swelling. Patient is going on for about a week. Denies any injuries. Does note last week he had GI illness with vomiting and diarrhea. He states that resolved about 5 days ago. At that time he was feeling lightheaded but that is since resolved. He denies associated fever or chills. He started to have redness for the foot which is what brought him to the ER today. Denies history of DVT or PE. Denies any shortness of breath or chest pain. Denies any new dyspnea on exertion. Is not aware of any injury or trauma to the foot/ankle. Denies any associated numbness or history of neuropathy. Has not take anything for pain today. Denies any history of gout. No other complaints or concerns reported at this time. [facility] Medical History (Updated 12/03/24 @ 01:[address] Keyanna Araiza, DO) Type 2 diabetes mellitus Presence of stent in coronary artery (~02/17/06) Pure hypercholesterolemia Essential hypertension CKD (chronic kidney disease) Diabetes HTN (hypertension) Ischemic cardiomyopathy Other residential (current) drug therapy Atherosclerotic heart disease of [place] coronary artery without angina pectoris HLD (hyperlipidemia) Cardiomyopathy, ischemic CAD (coronary artery disease) Home Medications ?Medication ?Instructions ?Recorded ?Last Taken ?Type fenofibrate nanocrystallized 145 145 mg PO QHS 11/30/14 08/19/21 History mg tablet eegoohsj-ckt-ncxht acid 0.4 1 ea PO DAILY 11/30/14 08/19/21 History mg-lycopene 300 mcg-lutein 250 mcg tablet omega-3 fatty acids 500 mg capsule 500 mg PO DAILY 11/30/14 08/19/21 History sitagliptin phosphate 100 mg tablet 100 mg PO DAILY 11/30/14 08/19/21 History tamsulosin 0.4 mg capsule 0.4 mg PO DAILY #30 caps 12/05/14 08/19/21 Rx aspirin 81 mg tablet,delayed 81 mg PO DAILY 03/18/18 08/19/21 History release (Adult Low Dose Aspirin) atorvastatin 80 mg tablet 80 mg PO QHS 03/18/18 08/19/21 History finasteride 5 mg tablet 5 mg PO DAILY 03/18/18 08/19/21 History nitroglycerin 0.4 mg sublingual 0.4 mg sublingual Q5-15M PRN chest 04/27/19 Unknown Rx tablet (Nitrostat) pain #25 tabs dapagliflozin propanediol 10 mg 10 mg PO QAM 04/13/20 08/19/21 History tablet (Farxiga) metoprolol tartrate 100 mg tablet 50 mg PO BID 08/17/20 08/19/21 History metformin 500 mg tablet,extended 500 mg PO BID 12/04/23 Unknown History release 24 hr colchicine 0.6 mg tablet 0.6 mg PO DAILY #7 tabs 12/03/24 Unknown Rx Allergy/AdvReac Type Severity Reaction Status Date / Time No Known Allergies Allergy Verified 12/02/24 22:49 Family History Father Cancer Mother No problems noted. Surgical History History of prostate surgery Presence of coronary angioplasty implant and graft (~02/17/06) History of colonoscopy History of cataract extraction History of removal of cyst History of prostate surgery S/P PTCA (percutaneous transluminal coronary angioplasty) S/P CABG x 3 (~1991) Social History Smoking Status: Current every day smoker tobacco type: cigarettes and cigars per week: 10 alcohol intake: never substance use type: does not use caffeine: Yes Type: coffee Number of servings: 6 seatbelt use: always do you feel safe at home: Yes ROS ROS ED Constitutional Constitutional ED: Denies chills or fever(s) Cardiovascular Cardiovascular: Denies chest pain Respiratory/Chest Respiratory/Chest: Denies cough or dyspnea Gastrointestinal Gastrointestinal: Denies abdominal pain, diarrhea or vomiting Musculoskeletal Musculoskeletal: Reports other Details: Right ankle pain and swelling Integumentary Reports rash and other Details: Right foot/ankle Neurologic Neurologic: Denies paresthesias or weakness Hematologic/Lymphatic Hematologic/Lymphatic: Denies easy bleeding or easy bruising EXAM Physical Exam Const Vital Signs: 12/02/24 22:49 12/02/24 22:51 12/02/24 22:56 Temperature 97.9 F 97.9 F Temperature Source Oral Oral Pulse Rate 87 88 Respiratory Rate 16 16 Respiratory Effort Normal Non-Labored Respiratory Pattern Normal Blood Pressure 145/88 H 145/88 H Blood Pressure Mean 107 107 Pulse Ox 98 99 Oxygen Delivery Method Room Air Room Air 12/03/24 00:48 12/03/24 01:45 Temperature 98.1 F Temperature Source Pulse Rate 72 72 Respiratory Rate 18 18 Respiratory Effort Respiratory Pattern Blood Pressure 132/57 H 132/57 H Blood Pressure Mean 82 82 Pulse Ox 97 97 Oxygen Delivery Method Room Air Positive well nourished and well developed General Appearance ED: well developed and NAD HEENT Reports moist mucous membranes Neck supple Chest Wall inspection of chest normal and palpation of chest normal Resp normal respiratory effort and no retractions Cardio regular rate and regular rhythm Cardio Narrative: 1+ right DP pulse. 2+ left DP pulse GI non-tender and non-distended Extremity Extremity Narrative: Soft tissue swelling and mild effusion noted to the right ankle exam to the foot. Tenderness palpation most pronounced over the lateral ankle but also present over the medial aspect of the ankle. No significant pinpoint bony tenderness. Mild pain with range of motion of the joints but no significant short arc range of motion pain. Neuro oriented x3 and moves all extremities Sensorium / Orientation: alert Motor Exam: Negative for general weakness Psych mental status grossly normal Skin Skin Narrative: Erythema and mild warmth of the right ankle more pronounced on the medial aspect and extending over the midfoot. Mild erythema presents the medial ankle as well. No associated abscess, fluctuance or lymphangitic streaking. MDM MDM MDM Narrative Medical decision making narrative: Patient evaluated for atraumatic right ankle pain, swelling and redness. It does extend down to his foot. Differential includes DVT, septic joint, gouty arthropathy, cellulitis, vascular insufficiency and sprain/fracture. Venous duplex negative for DVT. No leukocytosis. No left shift. CMP largely normal. Creatinine at baseline 1.26. CRP mildly elevated 12.30 which is nonspecific. X-ray of the ankle reviewed by myself as well as radiology shows soft tissue swelling with no acute bony abnormalities. Discussed that given that this redness has been pretty steady for a week per report from and patient that I suspect this is more of a gout flare and not cellulitis. There is no significant warmth or associate lymphangitic streaking. He has been afebrile and no systemic signs of infection. In addition he does not have short arc range of motion pain of the lower suspicion for septic joint. I did offer arthrocentesis for definitive diagnosis of gout. Patient and family declined and would prefer empiric treatment with colchicine. We did discuss using prednisone however patient is a diabetic on 3 diabetic agents and there is increased risk of hypoglycemia. Will defer steroids at this time. Patient was given a dose of Toradol in the emergency room. Is given first dose of colchicine in the ER and will send in prescription for further treatment. Given podiatry follow-up. He states he does not need a walker or anything to assist with ambulation at home. Pain is not too severe that he requires opioid pain medication. Is given return precautions. Counseled that this is a presumptive diagnosis and if he has worsening symptoms or progression he should return to the emergency room immediately. Patient and family verbalized agreement understands plan. Discharged home in stable condition. Lab Data Attestation: I reviewed the patient's lab results. Labs: Laboratory Results - last 24 hr 12/02/24 23:54 WBC 8.8 RBC 5.05 Hgb 15.4 Hct 46.6 MCV 92.3 MCH 30.5 MCHC 33.0 RDW Std Deviation 51.8 H RDW Coeff of Livan 15.2 H Plt Count 288 MPV 10.0 Immature Gran % (Auto) 0.900 Neut % (Auto) 55.5 Lymph % (Auto) 32.5 [place] % (Auto) 9.0 Eos % (Auto) 1.4 Baso % (Auto) 0.7 Absolute Neuts (auto) 4.9 Absolute Lymphs (auto) 2.85 Nucleated RBC % 0 Sodium 140 Potassium 4.3 Chloride 110 H Carbon Dioxide 26.0 Anion Gap 4 L BUN 26 H Creatinine 1.26 Estim Creat Clear Calc 42.70 Est GFR (MDRD) Af Amer 71 Est GFR (MDRD) Non-Af 59 L BUN/Creatinine Ratio 20.6 H Glucose 144 H Calcium 9.2 Magnesium 2.3 Total Bilirubin 0.30 AST 13 L ALT 12 L Alkaline Phosphatase 65 C-React Prot Ext Range 12.30 H Total Protein 7.2 Albumin 3.3 Globulin 3.9 Albumin/Globulin Ratio 0.8 L Radiography Diagnostic Testing: Clinical Impression(s) from Imaging Studies Venous Duplex 12/02/24 23:03 IMPRESSION: Normal right lower extremity duplex venous ultrasound. Electronically Signed: Fernando Pinto MD at 0:20 EST , Ankle X-Ray 12/02/24 23:40 IMPRESSION: Mild soft tissue swelling. No acute osseous findings. Electronically Signed: Fernando Pinto MD at 0:10 EST , Discharge Plan Triage Chief Complaint: Edema ED Provider: Keyanna Araiza Dx/Rx/DC Orders Clinical Impression: Acute right ankle pain, Acute gout of right ankle Instructions: ED Gout, ED Gout Diet Prescriptions: New colchicine 0.6 mg tablet 0.6 mg PO DAILY Qty: 7 0RF Rx Instructions: May stop if pain has resolved. No Action aspirin [Adult Low Dose Aspirin] 81 mg tablet,delayed release (DR/EC) 81 mg PO DAILY atorvastatin 80 mg tablet 80 mg PO QHS finasteride 5 mg tablet 5 mg PO DAILY nitroglycerin [Nitrostat] 0.4 mg tablet, sublingual 0.4 mg SUBLINGUAL Q5-15M MDD cp PRN (Reason: chest pain) Qty: 25 1RF Farxiga 10 mg tablet 10 mg PO QAM metformin 500 mg tablet extended release 24 hr 500 mg PO BID yudpkbfc-fdv-FZ-lycopen-lutein 1 EACH tablet 1 ea PO DAILY Patient Comments: supplement fenofibrate nanocrystallized 145 MG tablet 145 mg PO QHS Patient Comments: high cholesterol sitagliptin phosphate 100 MG tablet 100 mg PO DAILY Patient Comments: diabetes omega-3 fatty acids 500 MG capsule 500 mg PO DAILY Patient Comments: supplement metoprolol tartrate 100 mg tablet 50 mg PO BID Patient Comments: blood pressure tamsulosin 0.4 MG capsule 0.4 mg PO DAILY Qty: 30 0RF Patient Comments: bladder Primary Care Provider: Becca Bates Referrals: Alex Shah DPM [Med Staff - Active Staff] - 3-5 Days Becca Bates DO [Primary Care Provider] - Activity Restrictions/Additional Instructions: I suspect this is gout of your ankle. Did not have a blood clot in the leg. Have a lower suspicion for cellulitis or infection of the joint. You have been prescribed colchicine to help calm down presumed gouty flare. If the symptoms worsen, you develop fever or the redness worsens please do not hesitate to return to the emergency room. Please follow-up with podiatry. Take Tylenol for pain as well. Print Language: Wolof Disposition Disposition: Home, Self Care Discharge Date/Time: 12/03/24 02:09
--- NOTE | 2024-12-02 23:40 | RAD_ITS ---
EXAM: XR RIGHT ANKLE COMPLETE, 3 OR MORE VIEWS CLINICAL INDICATION: pain, swelling TECHNIQUE: Frontal, lateral and oblique views of the right ankle. COMPARISON: No relevant prior studies available. FINDINGS: BONES/JOINTS: Unremarkable. No acute fracture. No subluxation. Normal alignment. Preservation of the joint space. No sclerotic or destructive changes observed. SOFT TISSUES: Mild soft tissue swelling. No radiopaque foreign body. RAD/Ankle min 3 Views IMPRESSION: Mild soft tissue swelling. No acute osseous findings. Electronically Signed: Fernando Pinto MD at 0:10 EST ,
[2024-12-02] MEDS: Ketorolac 15 MG/ML Vial IV (23:49)
[2024-12-03 00:03] LABS: Absolute Lymphocyte Count 2.85 X10^3/uL (0.83-4.51); Absolute Neutrophil Count 4.9 X10^3/uL (2.0-7.7); Basophil# 0.06 X10^3/uL; Basophil% 0.7 % (0-1); Eosinophil# 0.12 X10^3/uL; Eosinophils% 1.4 % (0-5); Hematocrit 46.6 % (40-54); Hemoglobin 15.4 g/dL (13.0-16.5); Lymphocyte # 2.85 X10^3/ul (0.83-4.51); Lymphocyte % 32.5 % (19-41); Mean Corpuscular Hgb 30.5 pg (27.0-32.0); Mean Corpuscular Volume 92.3 fL (80-94); Monocyte# 0.79 X10^3/uL; NRBC Flagged by Analyzer 0 % (0-5); Neutrophil # 4.86 X10^3/uL (2.7-7.7); Neutrophil % 55.5 % (47-70); Platelet Count 288 K/mm3 (150-450); RBC Distribution Width CV 15.2 % (11.6-14.6); RBC Distribution Width SD 51.8 fl (35.1-43.9); Red Blood Count 5.05 M/mm3 (4.6-6.2); White Blood Count 8.8 K/mm3 (4.4-11.0)
[2024-12-03 00:30] LABS: ALB/GLOB Ratio 0.8 RATIO (0.9-2.4); AST(SGOT) 13 U/L (15-37); Alanine Aminotransfer ALT/SGPT 12 U/L (16-61); Albumin, Serum 3.3 g/dL (3.2-5.0); Alkaline Phosphatase 65 U/L (45-117); Anion Gap 4 (5-15); BUN 26 mg/dL (7-18); BUN/Creat Ratio 20.6 RATIO (10-20); Calcium,Total 9.2 mg/dL (8.5-10.1); Chloride 110 mmol/L (98-107); Creatinine, Serum 1.26 mg/dL (0.70-1.30); EST Glomerular Filtration Rate 59 mL/min (>60); Est Glom Filt Rate - Afr Amer 71 mL/min (>60); Globulin 3.9 g/dL (2.2-4.2); Glucose 144 mg/dL (74-106); Magnesium 2.3 mg/dL (1.6-2.6); Potassium 4.3 mmol/L (3.5-5.1); Protein, Total 7.2 g/dL (6.4-8.2); Sodium Level 140 mmol/L (136-145)
[2024-12-03 00:48] VITALS: BP 132/57; PULSE 72; RESP 18; O2SAT 97
[2024-12-03] MEDS: Colchicine 0.6 MG TABLET 1.2 MG PO (01:20)
[2024-12-03 01:45] VITALS: BP 132/57; PULSE 72; RESP 18; TEMP 36.7; O2SAT 97
== END 2024-12-03 02:09 | disposition home or self-care (01) ==
PROVIDERS: Emergency Provider Emergency Medicine; PCP Internal Medicine; Visit Provider Emergency Medicine
DX: M25.571 Pain in right ankle and joints of right foot (principal); E11.51 Type 2 diabetes mellitus with diabetic peripheral angiopathy without gangrene; E11.22 Type 2 diabetes mellitus with diabetic chronic kidney disease; M10.071 Idiopathic gout, right ankle and foot; E78.00 Pure hypercholesterolemia, unspecified; I25.10 Atherosclerotic heart disease of native coronary artery without angina pectoris; I25.5 Ischemic cardiomyopathy; I12.9 Hypertensive chronic kidney disease with stage 1 through stage 4 chronic kidney disease, or unspecified chronic kidney disease; N18.9 Chronic kidney disease, unspecified; Z79.899 Other long term (current) drug therapy; Z79.82 Long term (current) use of aspirin; Z79.84 Long term (current) use of oral hypoglycemic drugs; Z95.5 Presence of coronary angioplasty implant and graft
CPT/HCPCS: 73610; 80053; 83735; 85025; 86140; 93971; 96374; 99283; A4216

== ENCOUNTER → 2024-12-09 | Outpatient (CLI) | payer MEDICARE, SELFPAY ==
--- NOTE | 2024-12-09 08:37 | CT_ITS ---
STUDY: CTA NECK WITH CONTRAST REASON FOR EXAM: Male, [address] ANGIOGRAM CAROTID ARTERY W CONTRAST, carotid stenosis -- Carotid occlusion, bilateral RADIATION DOSAGE (If Supplied By Facility): CTDIvol = ( 21.07 ) mGy, DLP = ( 481.82 ) mGycm TECHNIQUE: CT angiography with multi-detector data acquisition was performed from the aortic arch to the skull base following intravenous administration of IV 100mL Isovue-370. MIP images were reconstructed from the axial data set. Post-processing of the angiographic images was performed, with multiplanar reformation and 3D reconstruction. Individualized dose optimization techniques were used for this CT. COMPARISON: None. FINDINGS: Prior CABG. Subcentimeter cyst in the right lobe of the thyroid. AORTIC ARCH: There is atherosclerotic calcific plaque formation of the aortic arch and great vessels arising from the aortic arch, without a hemodynamically significant stenosis. There is a normal origin of the brachiocephalic, left common carotid, and left subclavian arteries. Normal origins of the brachiocephalic, left common carotid, and left subclavian arteries. Atherosclerotic plaque formation at the origin of the right brachiocephalic artery and left subclavian artery. RIGHT CAROTID ARTERIES: Normal right common carotid artery (CCA). Normal right common carotid bulb. There is severe atherosclerotic plaque formation of the origin of the right internal carotid artery with a near complete occlusion. Normal visualized cervical portion of the right internal carotid artery. Normal origin of the right external carotid artery (ECA). LEFT CAROTID ARTERIES: Normal left common carotid artery (CCA). Normal left common carotid bulb. There is moderate atherosclerotic plaque formation of the origin of the left internal carotid artery with an estimated stenosis of 50-69% stenosis. Normal visualized cervical portion of the left internal carotid artery. Normal origin of the left external carotid artery (ECA). VERTEBRAL ARTERIES: There is enhancement within the bilateral vertebral arteries with a small right vertebral artery, and a dominant left vertebral artery. CT/CTA Neck W/WO Contrast IMPRESSION: Tight stenosis at the origin of the right internal carotid artery due to calcified plaque. 50-69% stenosis at the origin of the left internal carotid artery due to calcified plaques. Small right vertebral artery. Electronically Signed: Tico Oliva MD at 9:33 EST ,
== END | disposition home or self-care (01) ==
PROVIDERS: PCP Internal Medicine; Referring Provider Internal Medicine; Visit Provider Internal Medicine
DX: I65.23 Occlusion and stenosis of bilateral carotid arteries (principal)
CPT/HCPCS: 70498; Q9967

== ENCOUNTER → 2025-05-10 | Outpatient (CLI) | payer MEDICARE, SELFPAY ==
--- NOTE | 2025-05-10 17:03 | CT_ITS ---
PROCEDURE: CTA NECK W/WO CONTRAST 05/10/2025 REASON FOR EXAM: CAROTID STENOSIS TECHNIQUE: CTA HEAD AND NECK WITH IV CONTRAST: Multiplanar and multisequence images were obtained. CONTRAST: Isovue 370 VOLUME: 100 mL One or more dose reduction techniques were used (e.g., Automated exposure control, adjustment of the mA and/or kV according to patient size, use of iterative reconstruction technique). RADIATION DOSE SUMMARY: CTDlvol: 13.79 mGy DLP: 453 mGycm COMPARISON: 12/09/2024. FINDINGS: Prior CABG. Subcentimeter cyst in the right lobe of the thyroid. AORTIC ARCH: There is atherosclerotic calcific plaque formation of the aortic arch and great vessels arising from the aortic arch, without a hemodynamically significant stenosis. There is a normal origin of the brachiocephalic, left common carotid, and left subclavian arteries. Normal origins of the brachiocephalic, left common carotid, and left subclavian arteries. Atherosclerotic plaque formation at the origin of the right brachiocephalic artery and left subclavian artery. RIGHT CAROTID ARTERIES: Normal right common carotid artery (CCA). Normal right common carotid bulb. There is severe atherosclerotic plaque formation of the origin of the right internal carotid artery with a near complete occlusion. Normal visualized cervical portion of the right internal carotid artery. Normal origin of the right external carotid artery (ECA). LEFT CAROTID ARTERIES: Normal left common carotid artery (CCA). Normal left common carotid bulb. There is moderate atherosclerotic plaque formation of the origin of the left internal carotid artery with an estimated stenosis of 50-69% stenosis. Normal visualized cervical portion of the left internal carotid artery. Normal origin of the left external carotid artery (ECA). VERTEBRAL ARTERIES: There is enhancement within the bilateral vertebral arteries with a small right vertebral artery, and a dominant left vertebral artery. Unchanged chronic multifocal high-grade subocclusive stenosis of the right vertebral artery. CT/CTA Neck W/WO Contrast IMPRESSION: No significant change is noted. Reading Location: [place] [id number]
[2025-05-10 17:26] LABS: CREATININE FINGERSTICK < 1.0 mg/dL (0.70-1.30); EGFR FINGERSTICK > 60.0000 mL/min (>60)
== END | disposition home or self-care (01) ==
LOC: CT 17:02
PROVIDERS: PCP Internal Medicine; Referring Provider Surgery Trauma Surgery; Visit Provider Surgery Trauma Surgery
DX: I65.23 Occlusion and stenosis of bilateral carotid arteries (principal)
CPT/HCPCS: 70498; Q9967

== ENCOUNTER → 2025-08-04 | Outpatient (CLI) | payer MEDICARE, SELFPAY ==
--- NOTE | 2025-08-04 09:18 | ART_ITS ---
Reason For Study Reason For Study: PVD Procedure A bilateral lower extremity continuous wave Doppler with analog waveform analysis,segmental pressures,and ankle brachial indexes without exercise. Left Segmental Pressures Left brachial= 123mmHg. Left high thigh = 73mmHg. Left low thigh = 68mmHg. Left calf = 58mmHg. Left posterior tibial artery = 60mmHg. Left dorsalis pedis artery = 51mmHg. Left digit = 41 mmHg. The left posterior tibial artery waveforms are monophasic. The left dorsalis pedis waveforms are monophasic. Right Segmental Pressures Right brachial= 117mmHg. Right high thigh = 76mmHg. Right low thigh = 73mmHg. Right calf = 58mmHg. Right posterior tibial artery = 48mmHg. Right dorsalis pedis artery = 49mmHg. Right digit = 0 mmHg. The right posterior tibial artery waveforms are monophasic. The right dorsalis pedis waveforms are monophasic. Indices The right ankle brachial index by the posterior tibial artery is 0.39. The right ankle brachial index by the dorsalis pedis is 0.40. The right digital-brachial index is 0.00. The left ankle brachial index by the posterior tibial artery is 0.49. The left ankle brachial index by the dorsalis pedis is 0.41. The left digital-brachial index is 0.33. VL/Lower Ext Art Exam w/o Exercis Interpretation Summary Right MARISA 0.4, severe arterial insufficiency. Doppler/PVR waveforms and segment al pressures reveal aorto-iliac disease. Left MARISA 0.49, severe arterial insuffiencey. Doppler/PVR waveforms and segmenta l pressures reveal aorto-iliac disease. Ordering Physician: Becca Bates Referring Physician: Becca Bates Performed By: Enrico West RVT
--- NOTE | 2025-08-04 09:55 | CT_ITS ---
PROCEDURE: CTA HEAD AND NECK W/ CONTRAST 08/04/2025 REASON FOR EXAM: CAROTID STENOSIS TECHNIQUE: Procedure Code: [id number].HDNCK Modality: CT Procedure: CTA HEAD AND NECK W/ CONTRAST Multiplanar Sagittal and Coronal images were obtained. CONTRAST: Isovue 370 VOLUME: 82 mL One or more dose reduction techniques were used (e.g., Automated exposure control, adjustment of the mA and/or kV according to patient size, use of iterative reconstruction technique). RADIATION DOSE SUMMARY: CTDlvol: 44+ 13+ 14 mGy DLP: 1436 mGycm FINDINGS: Neck/Thyroid: Prior CABG changes partially visualized. Subcentimeter cyst in the right thyroid lobe. Aortic Arch/Great Vessels: *Atherosclerotic calcific plaque formation involving the aortic arch and its branches. *Normal origins of the brachiocephalic, left common carotid, and left subclavian arteries. *Atherosclerotic plaque present at the origin of the right brachiocephalic artery and left subclavian artery, without hemodynamically significant stenosis. Right Carotid Arteries: *Right common carotid artery and bulb: Normal. *Severe atherosclerotic plaque at the origin of the right internal carotid artery with near-complete occlusion. *Normal visualized cervical portion of the right internal carotid artery. *Right external carotid artery: Normal origin. Left Carotid Arteries: *Left common carotid artery and bulb: Normal. *Moderate atherosclerotic plaque at the origin of the left internal carotid artery, estimated stenosis 50-69%. *Normal visualized cervical portion of the left internal carotid artery. *Left external carotid artery: Normal origin. Vertebral Arteries: *Bilateral vertebral artery enhancement. *Right vertebral artery: small caliber, with unchanged chronic multifocal high- grade subocclusive stenosis. *Left vertebral artery: dominant, patent. CT/CTA Head AND Neck W/ Contrast IMPRESSION: *Severe atherosclerotic plaque at the origin of the right internal carotid vern ry with near-complete occlusion. *Moderate atherosclerotic plaque at the origin of the left internal carotid art ramirez with 50-69% stenosis. *Chronic multifocal high-grade subocclusive stenosis of the right vertebral art ramirez, unchanged. Dominant patent left vertebral artery. *Atherosclerotic plaque of the aortic arch and great vessel origins without hem odynamically significant stenosis. Reading Location: [address]
[2025-08-09 10:24] LABS: CREATININE FINGERSTICK < 1.0 mg/dL (0.70-1.30); EGFR FINGERSTICK > 60.0000 mL/min (>60)
== END | disposition home or self-care (01) ==
PROVIDERS: PCP Internal Medicine; Referring Provider Internal Medicine; Visit Provider Internal Medicine
DX: I65.23 Occlusion and stenosis of bilateral carotid arteries (principal); I73.9 Peripheral vascular disease, unspecified
CPT/HCPCS: 70496; 70498; 93923; Q9967

== ENCOUNTER → 2025-08-22 | Outpatient (CLI) | payer MEDICARE, SELFPAY ==
--- NOTE | 2025-08-22 11:08 | ECHOD_ITS ---
Reason For Study Reason For Study: COPD, CAD Procedure This was a 2D Doppler, Color Flow transthoracic echocardiogram. Exam performed in department. Left Ventricle Normal LV size. The left ventricular ejection fraction is 35 %. Moderately severe segmental systolic dysfunction (see wall motion). Anterior [place] : Akinetic. Mid-Anterior : Hypokinetic. The rest of the wall segments are hypokinetic. Right Ventricle Normal RV size. Normal systolic function. Atria Normal left atrium. Normal right atrium. Mitral Valve Mild diffuse mitral valve thickening. Mild-Moderate (1-2+) eccentric mitral valve insufficiency. Tricuspid Valve Normal tricuspid valve. Mild tricuspid valve insufficiency. Pulmonary artery systolic pressure is 24 mmHg. Aortic Valve Trisinus/trileaflet aortic valve. Mild (1+) aortic valve insufficiency. Pulmonic Valve Normal pulmonic valve. Great Vessels Normal aortic root. The pulmonary artery is normal size. Inferior vena cava collapse with respiration. Pericardium/Pleural No pericardial effusion. MMode/2D Measurements & Calculations LVIDd: 5.4 cm IVSd: 0.87 cm Ao root diam: 3.1 cm LVIDs: 4.6 cm LVPWd: 1.0 cm RVDd: 3.4 cm FS: 14.4 % LAV(MOD-bp): 38.1 ml LVAd ap4: 34.4 cm2 LVAd ap2: 34.6 cm2 LAV(MOD-bp) Indexed: 22.0 ml/m2 LVLd ap4: 8.2 cm LVLd ap2: 8.6 cm LAV(MOD-sp2): 38.4 ml EDV(MOD-sp4): 120.8 ml EDV(MOD-sp2): 117.9 ml LAV(MOD-sp4): 36.4 ml EDV(sp4-el): 123.1 ml EDV(sp2-el): 117.2 ml LVAs ap4: 25.9 cm2 LVAs ap2: 28.6 cm2 LVLs ap4: 7.4 cm LVLs ap2: 8.1 cm ESV(MOD-sp4): 74.2 ml ESV(MOD-sp2): 84.3 ml ESV(sp4-el): 77.4 ml ESV(sp2-el): 85.9 ml EF(MOD-sp4): 38.6 % EF(MOD-sp2): 28.5 % EF(sp4-el): 37.2 % SV(MOD-sp4): 46.6 ml SV(MOD-sp2): 33.6 ml SV(sp4-el): 45.8 ml SI(MOD-sp4): 26.9 ml/m2 SI(MOD-sp2): 19.4 ml/m2 LA A4 area: 14.6 cm2 LA dimension(2D): 3.8 cm RA A4 area: 13.4 cm2 TAPSE: 1.7 cm Time Measurements MV dec time: 0.19 sec Doppler Measurements & Calculations MV E max stephen: 73.3 cm/sec Lat Peak E' Stephen: 7.4 cm/sec Med Peak E' Stephen: 5.5 cm/sec MV A max stephen: 69.9 cm/sec E/E' lat: 10.0 E/E' med: 13.4 MV E/A: 1.0 Ao V2 max: 111.0 cm/sec AI max stephen: 305.3 cm/sec MV dec slope: 389.3 cm/sec2 Ao max P.9 mmHg AI max P.3 mmHg Ao V2 mean: 75.6 cm/sec Ao mean P.6 mmHg AI dec slope: 234.4 cm/sec2 Ao V2 VTI: 29.1 cm AI P1/2t: 381.5 msec AV (velocity ratio): 0.86 LV V1 max: 101.1 cm/sec PA V2 max: 100.4 cm/sec TR max stephen: 223.3 cm/sec LV V1 max P.1 mmHg TR max P.2 mmHg LV V1 mean P.1 mmHg LV V1 mean: 67.0 cm/sec LV V1 VTI: 25.1 cm ECHO/Echo Complete Interpretation Summary The left ventricular ejection fraction is 35 %. Moderately severe segmental systolic dysfunction (see wall motion). Normal LV size. Mild-Moderate (1-2+) eccentric mitral valve insufficiency. Mild (1+) aortic valve insufficiency. Ordering Physician: Becca Bates Referring Physician: Becca Bates Performed By: Nettie Cornelius RDCS
== END | disposition home or self-care (01) ==
PROVIDERS: PCP Internal Medicine; Referring Provider Internal Medicine; Visit Provider Internal Medicine
DX: J44.9 Chronic obstructive pulmonary disease, unspecified (principal); I42.8 Other cardiomyopathies
CPT/HCPCS: 93306; 94060; 94726; 94729

== ENCOUNTER → 2025-09-19 | Outpatient (CLI) | payer MEDICARE, SELFPAY ==
[2025-09-19 10:34] LABS: Anion Gap 10 (5-15); BUN 23 mg/dL (4-19); BUN/Creat Ratio 19.2 RATIO (10-20); Calcium,Total 9.4 mg/dL (7.6-11.0); Carbon Dioxide 22.9 mmol/L (21.0-32.0); Chloride 107 mmol/L (98-108); Glucose 138 mg/dL (70-99); Potassium 5.1 mmol/L (3.3-5.1)
== END | disposition home or self-care (01) ==
LOC: LAB 08:43
PROVIDERS: PCP Internal Medicine; Referring Provider Internal Medicine Cardiovascular Disease; Visit Provider Internal Medicine Cardiovascular Disease
DX: I25.5 Ischemic cardiomyopathy (principal)
CPT/HCPCS: 36415; 80048

== ENCOUNTER → 2025-10-03 | Outpatient (CLI) | payer MEDICARE, SELFPAY ==
--- NOTE | 2025-10-03 15:35 | RAD_ITS ---
PROCEDURE: RAD/Chest PA and Lateral
== END | disposition home or self-care (01) ==
PROVIDERS: PCP Internal Medicine; Referring Provider Internal Medicine Cardiovascular Disease; Visit Provider Internal Medicine Cardiovascular Disease
DX: I25.5 Ischemic cardiomyopathy (principal)
CPT/HCPCS: 71046

== ENCOUNTER 2025-10-04 16:42 | Outpatient (CLI) | payer MEDICARE, SELFPAY ==
--- NOTE | 2025-10-04 16:46 | CT_ITS ---
PROCEDURE: CTA ABD W/RUNOFF W/WO CONTRAST 10/04/2025 REASON FOR EXAM: SEVERE BLE ATHEROSCLEROSIS WITH CLAUDICATION TECHNIQUE: Procedure Code: [id number] Modality: CT Procedure: CTA ABD W/RUNOFF W/WO CONTRAST Multiplanar Sagittal and Coronal images were obtained. 3D and or MIPS post processing was performed CONTRAST: Isovue 370 VOLUME: 100 mL One or more dose reduction techniques were used (e.g., Automated exposure control, adjustment of the mA and/or kV according to patient size, use of iterative reconstruction technique). RADIATION DOSE SUMMARY: CTDlvol: 9.3 mGy DLP: 951.81 mGycm COMPARISON: None FINDINGS: Prior CABG. Aorta: Moderate mixed calcified and soft plaque. No abdominal aortic aneurysm. Mural thrombus. The distal abdominal aorta as a transverse dimension of 2.3 cm. Iliac Arteries: Marked degree of calcified plaque involving both common iliac arteries with areas of stenosis worse on the right side. Celiac: Unremarkable SMA: Mild degree of calcific plaque at the origin of the superior mesenteric artery. ADILSON : Not visualized Right Renal: Moderate degree of calcific plaque at the origin of the right renal artery. V-tach Left Renal: Mild plaque formation at the origin of the left renal artery. Lower Extremity Runoff (Bilateral): Common Femoral Arteries: Marked degree of atherosclerotic plaque formation. Bilateral stenosis. Superficial Femoral Arteries: Marked degree of plaque formation throughout the right superficial femoral artery with multiple areas of stenosis and occlusion. Calcific plaque with scattered stenosis throughout the course of the left superficial femoral artery. Profunda Femoris Arteries: Patent. Popliteal Arteries: The left popliteal artery shows areas of stenosis but it is patent. The right popliteal artery is not seen. Tibial and Peroneal Arteries: Two-vessel runoff in both lower extremities. Distal Runoff: Two-vessel runoff in both lower extremities. Extravascular Findings: CT/CTA Abd w/Runoff W/WO Contrast IMPRESSION: Marked degree of calcific plaque with areas of tight stenosis in both right and left common iliac and external iliac arteries. Marked degree of plaque formation and stenosis throughout both superficial femo ral arteries worse on the right side. The popliteal artery is not well seen on the right side. Two-vessel runoff in both lower extremities name of the posterior tibial and pe roneal arteries. Reading Location: [id number]
== END 2025-10-04 23:59 | disposition home or self-care (01) ==
LOC: CT 16:44
PROVIDERS: PCP Internal Medicine; Referring Provider Physician Assistant; Visit Provider Physician Assistant
DX: I70.213 Atherosclerosis of native arteries of extremities with intermittent claudication, bilateral legs (principal)
CPT/HCPCS: 75635; Q9967

== ENCOUNTER → 2025-10-05 | Outpatient (CLI) | payer MEDICARE, SELFPAY ==
--- NOTE | 2025-10-05 14:44 | STRESSREP_ITS ---
Stress Test Report
--- NOTE | 2025-10-05 14:44 | STRESSREP ---
Stress Test Report Date: 10/05/2025 Procedure: Pharmacologic stress nuclear imaging study Indications: Coronary artery disease Consent: Per the patient Procedure: The patient underwent pharmacologic (Regadenoson 0.4mg ) evaluation with a peak heart rate of 86 beats per minute (60%predicted maximal heart rate) and a peak blood pressure of 110/58 mmHg. The baseline ECG demonstrated sinus rhythm with nonspecific ST T wave changes. The peak pharmacologic ECG was nondiagnostic secondary to baseline abnormalities. Occasional PVCs noted pretest and in recovery. There was no complaint of chest discomfort during pharmacologic infusion or recovery. The patient was injected with 11.9 millicuries of technetium 99m Cardiolite and subsequently rest SPECT Cardiolite nuclear imaging was obtained in the horizontal long, vertical long, and short axis views. The patient underwent pharmacologic (Regadenoson) evaluation. The patient was injected with 34.8 millicuries of technetium 99m Cardiolite and subsequently stress SPECT Cardiolite nuclear imaging was obtained in the horizontal long, vertical long, and short axis views. A gated Cardiolite study at peak stress was obtained. The examination was stopped secondary to completion of protocol. Rest and stress SPECT Cardiolite nuclear imaging status post realignment, normalization, and attenuation correction demonstrate anterior and apical infarct with minimal ara-infarct ischemia. The LV appears dilated. There is generalized hypokinesis. The reported LVEF is 36%. Impression: 1. Pharmacologic (Regadenoson) evaluation 2. Peak pharmacologic ECG with no diagnostic changes secondary to baseline abnormalities. 3. Occasional PVCs noted pretest and in recovery. 5. Anterior apical infarct with minimal ara-infarct ischemia. 6. The gated Cardiolite study reports an LVEF of 36%. This note was generated with [employer] software. It may contain incorrect words, spelling, and punctuation that were not noted in checking the note before signing.
== END | disposition home or self-care (01) ==
LOC: CVS 05:58
PROVIDERS: PCP Internal Medicine; Referring Provider Internal Medicine Cardiovascular Disease; Visit Provider Internal Medicine Cardiovascular Disease
DX: I25.5 Ischemic cardiomyopathy (principal); I65.23 Occlusion and stenosis of bilateral carotid arteries; I25.10 Atherosclerotic heart disease of native coronary artery without angina pectoris
CPT/HCPCS: 78452; 93017; A9500; A4216; J2785

== ENCOUNTER → 2025-10-13 | Outpatient (CLI) | payer MEDICARE, SELFPAY ==
[2025-10-13 12:43] LABS: Hematocrit 45.7 % (40-54); Hemoglobin 15.0 g/dL (13.0-16.5); Immature Granulocytes Count 0.030 X10^3/uL (0.0-0.0); Mean Corp Hgb Conc 32.8 g/dL (32-36); Mean Corpuscular Volume 92.5 fL (80-94); Mean Platelet Vol. 11.3 fl (6.2-12.0); NRBC Flagged by Analyzer 0 % (0-5); Platelet Count 227 K/mm3 (150-450); RBC Distribution Width CV 16.7 % (11.6-14.6); RBC Distribution Width SD 57.1 fl (35.1-43.9); Red Blood Count 4.94 M/mm3 (4.6-6.2); White Blood Count 7.9 K/mm3 (4.4-11.0)
[2025-10-13 13:05] LABS: AST(SGOT) 17 U/L (<=37); Alanine Aminotransfer ALT/SGPT 11 U/L (<=46); Albumin, Serum 3.9 g/dL (3.4-4.8); Alkaline Phosphatase 52 U/L (40-129); Anion Gap 10 (5-15); BUN 36 mg/dL (4-19); BUN/Creat Ratio 33.4 RATIO (10-20); CRP 5.04 mg/L (0.0-3.0); Calcium,Total 9.4 mg/dL (7.6-11.0); Carbon Dioxide 23.1 mmol/L (21.0-32.0); Chloride 105 mmol/L (98-108); Globulin 3.1 g/dL (2.2-4.2); Glucose 120 mg/dL (70-99); Potassium 4.2 mmol/L (3.3-5.1); Vitamin B12 477 pg/mL (180-914); Vitamin D,25 Hydroxy 26.9 ng/mL (30-100)
== END | disposition home or self-care (01) ==
LOC: MTLAB 10:12
PROVIDERS: PCP Internal Medicine; Referring Provider Internal Medicine; Visit Provider Internal Medicine
DX: R53.83 Other fatigue (principal); E55.9 Vitamin D deficiency, unspecified
CPT/HCPCS: 36415; 80053; 82306; 82607; 84443; 85025; 85652; 86140

== ENCOUNTER 2025-11-14 10:06 | Inpatient (IN) | payer MEDICARE, SELFPAY ==
--- NOTE | 2025-11-01 09:27 | PAT.ANE_ITS ---
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 When Was Last Pacemaker Check QUESTION #4 FULL TEXT: You/Your Family Experience fever (hyperthermia) with Anesthesia Last Oral Intake Last Oral intake: Last Oral Intake NPO since Meds taken in AM with sips of water? 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 Female No 11/01/25 08:51 HX of Motion Sickness No 11/01/25 08:51 HX of N/V After Surgery No 11/01/25 08:51 Non-Smoker Yes 11/01/25 08:51 Duration of Surgery greater Yes 11/01/25 08:51 than 60 minutes Number of Risk Factors 2 11/01/25 08:51 PONV Score Moderate Risk 11/01/25 08:51 Height & Weight Height & Weight: Anesthesia: Height & Weight Height 5 ft 8 in 10/03/25 14:30 Respiratory Assessment Respiratory Assessment - field artillery targeting technician: Respiratory Tract Infection Hx - field artillery targeting technician Hx Respiratory Tract Infection No 11/01/25 08:51 STOP Sleep Apnea STOP Sleep Apnea - field artillery targeting technician: STOP Sleep Apnea - field artillery targeting technician Hx Hypertension Yes: CONTROLLED ON MED 11/01/25 08:51 Hx Sleep Apnea No 11/01/25 08:51 CPAP BIPAP Do you snore loudly (louder No 11/01/25 08:51 than talking or can be heard Do you often feel tired/ No 11/01/25 08:51 fatigued/ sleepy during daytime? Has anyone observed you stop No 11/01/25 08:51 breathing during sleep? STOP Results Negative 11/01/25 08:51 QUESTION #5 FULL TEXT : Do you snore loudly (louder than talking or can be heard through closed doors)? 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 Specify any problems Hx of Preganancy in last 3 N/A 11/01/25 08:51 Months Nurse Filling Out Transfusion VCHRISTIN 11/01/25 08:51 & Questions: Date: 11/01/25 11/01/25 08:51 Time: 08:52 11/01/25 08:51 Patient unable to answer at this time (ie. confused, unrespo /Reproduction History /Reproductive History - field artillery targeting technician: /Reproductive Hx- field artillery targeting technician Hx Now No 11/01/25 08:51 Gestational Age (in weeks): EDC: Hx Hx Para Hx Section SAB No 11/01/25 08:51 Does the father of the baby or his family experience fever w Father of the baby Malignant Hypertension history comment [facility] Medical History (Updated 11/01/25 @ 08:50 by Delia Khan) Wears hearing aid Wears glasses Wears contact lenses Cancer High cholesterol Heartburn Smoker On home oxygen therapy Shortness of breath on exertion History of pain when walking History of edema History of echocardiogram History of stress test Cardiology follow-up encounter Hx of retinal detachment Vitamin D deficiency Tobacco abuse counseling Tobacco abuse Vitamin B12 deficiency Type 2 diabetes mellitus Presence of stent in coronary artery (~02/17/06) Pure hypercholesterolemia Essential hypertension CKD (chronic kidney disease) Diabetes HTN (hypertension) Ischemic cardiomyopathy Other [facility] (current) drug therapy Atherosclerotic heart disease of [place] coronary artery without angina pectoris HLD (hyperlipidemia) Cardiomyopathy, ischemic CAD (coronary artery disease) Home Medications ?Medication ?Instructions ?Recorded ?Last Taken ?Type fenofibrate nanocrystallized 145 145 mg PO QHS CHOLEST NEELAM 11/30/14 08/19/21 History mg tablet pufkkumd-fcd-ycedw acid 0.4 1 ea PO DAILY SUPPLEMENT 0 11/30/14 08/19/21 History mg-lycopene 300 mcg-lutein 250 mcg tablet aspirin 81 mg tablet,delayed 81 mg PO DAILY BLOOD THIN NER 03/18/18 08/19/21 History release (Adult Low Dose Aspirin) atorvastatin 80 mg tablet 80 mg PO QHS CHOLESTEROL 08/19/21 History finasteride 5 mg tablet 5 mg PO DAILY URINATION 02/2808/19/21 History dapagliflozin propanediol 10 mg 10 mg PO QAM DIABETES 04/13/20 08/19/21 History tablet (Farxiga) metoprolol tartrate 100 mg tablet 50 mg PO BID BP 07/3108/19/21 History metformin 500 mg tablet,extended 500 mg PO BID DIABETE S 12/04/23 Unknown History release 24 hr omega-3 fatty acids 1,200 cap PO QAM SUPPLEMENT 12/15/24 Unknown History sitagliptin phosphate 100 mg tablet 100 mg PO DAILY DI ABETES 01/05/25 Unknown History pentoxifylline 400 mg 400 mg PO BID LEG CIRCULATIO N 08/04/25 Unknown History tablet,extended release losartan 25 mg tablet 25 mg PO QDAY BP #30 tabs Unknown Rx tamsulosin 0.4 mg capsule 0.4 mg PO BID urination 10/01 03/24 Unknown History vitamin D3 1,250 mcg (50,000 1 cap PO DAILY SUPPLEMENT 11/01/25 Unknown History unit)-vitamin K2 200 mcg capsule Allergy/AdvReac Type Severity Reaction Status Date / Time spironolactone AdvReac Intermediate Marked Verified 11/01/25 08:22 hypotension, unresponsive Family History Father Cancer Mother No problems noted. Surgical History (Updated 11/01/25 @ 08:50 by Delia Khan) History of cardiac catheterization Hx of eye surgery History of prostate surgery Presence of coronary angioplasty implant and graft (~02/17/06) History of colonoscopy History of cataract extraction History of removal of cyst History of prostate surgery S/P PTCA (percutaneous transluminal coronary angioplasty) S/P CABG x 3 (~1991) Social History Tobacco: How many years used: 30 quit status: considering quitting alcohol intake: current alcohol intake frequency: holidays/special occasions only substance use type: does not use caffeine: Yes Type: coffee Number of servings: 6 geena/sabianist: [place] seatbelt use: always do you feel safe at home: Yes Audit: Pertinent Findings Pertinent Findings EKG Perinent findings: 08/20/2021. Sinus tachycardia 101 bpm. Low voltage QRS. Poor R wave progression. Stress test pertinent findings: 10/05/2025. EF 36%. Occasional PVCs. Anterior apical infarct with minimal ara-infarct ischemia. Consult pertinent findings: Cardiology 10/03/2025. Ischemic cardiomyopathy, chronic. EF 35%. Continue current medical therapy. Check stress test. Hypertension. Chronic. Recently hypotension in August 2025. Medication changes improved. Status post CABG in 1991. Stent to RCA 2005. No recurrence of anginal symptoms. Recommendation Anesthesia Recommendation Anesthesia recommendation: OPTIMIZED for anesthesia
[2025-11-14] VITALS (28 sets, daily range): BP systolic 88–129; BP diastolic 34–54; PULSE 47–78; RESP 9–20; TEMP 36.2–36.6; O2SAT 93–100; BMI 21.7; BMI 23.1
--- NOTE | 2025-11-14 06:45 | PCM.PRE.AN2 ---
ASA Classification* ASA Classification ASA Classification: 3 Assessment & Plan Anesthesia* Anesthesia Assessment Anesthesia Assessment: Discussed sedation and/or anesthesia options, risks, benefits, and alternatives with patient/parents/legal guardian/POA. Questions invited. The patient/parents/legal guardian/POA seems to understand and agrees to proceed with anesthesia plan. Reviewed the physical assessment, medical history, allergy history and patient home medications list prior to surgery/procedure/anesthetic and documented any changes. Performed airway and anesthesia risk assessments. Anesthesia Type Anesthesia Type: General ([place]) Anesthesia Focused Assessment* Airway Assessment Mouth opens: >3 cm Mallampati Score: II Labs Anesthesia Preop lab: CBC WBC, (4.4-11.0) 7.9 K/mm3 10/13/25, 10:16 RBC, (4.6-6.2) 4.94 M/mm3 10/13/25, 10:16 Hgb, (13.0-16.5) 15.0 g/dL 10/13/25, 10:16 Hct, (40-54) 45.7 % 10/13/25, 10:16 Plt Count, (150-450) 227 K/mm3 10/13/25, 10:16 CHEMISTRY Potassium, (3.3-5.1) 4.2 mmol/L 10/13/25, 10:16 Sodium, (133-145) 139 mmol/L 10/13/25, 10:16 Magnesium, (1.6-2.6) 2.3 mg/dL 12/02/24, 23:54 BUN, (4-19) 36 mg/dL H 10/13/25, 10:16 Creatinine, (0.70-1.20) 1.08 mg/dL 10/13/25, 10:16 Glucose, (70-99) 120 mg/dL H 10/13/25, 10:16 POC Glucose, (70-110) 324 mg/dL H 08/21/21, 12:49 TSH, (0.300-4.200) 1.900 uIU/mL 10/13/25, 10:16 COAG PT, (11.7-14.9) 14.4 SECONDS 06/06/18, 21:55 Pre-Assessment Diagnosis/Proposed Procedure Planned Operative Procedure(s): (R) Right Carotid Endarterectomy Anesthesia History 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 When Was Last Pacemaker Check QUESTION #4 FULL TEXT: You/Your Family Experience fever (hyperthermia) with Anesthesia Last Oral Intake Last Oral intake: Last Oral Intake NPO since Meds taken in AM with sips of water? Meds patient instructed to take am of surgery PONV PONV - scrap charger: PONV - scrap charger Female No 11/01/25 08:51 HX of Motion Sickness No 11/01/25 08:51 HX of N/V After Surgery No 11/01/25 08:51 Non-Smoker Yes 11/01/25 08:51 Duration of Surgery greater Yes 11/01/25 08:51 than 60 minutes Number of Risk Factors 2 11/01/25 08:51 PONV Score Moderate Risk 11/01/25 08:51 Height & Weight Height & Weight: Anesthesia: Height & Weight Height 5 ft 8 in 10/23/25 10:54 Respiratory Assessment Respiratory Assessment - scrap charger: Respiratory Tract Infection Hx - scrap charger Hx Respiratory Tract Infection No 11/01/25 08:51 STOP Sleep Apnea STOP Sleep Apnea - scrap charger: STOP Sleep Apnea - scrap charger Hx Hypertension Yes: CONTROLLED ON MED 11/01/25 08:51 Hx Sleep Apnea No 11/01/25 08:51 CPAP BIPAP Do you snore loudly (louder No 11/01/25 08:51 than talking or can be heard Do you often feel tired/ No 11/01/25 08:51 fatigued/ sleepy during daytime? Has anyone observed you stop No 11/01/25 08:51 breathing during sleep? STOP Results Negative 11/01/25 08:51 QUESTION #5 FULL TEXT : Do you snore loudly (louder than talking or can be heard through closed doors)? 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 Specify any problems Hx of Preganancy in last 3 N/A 11/01/25 08:51 Months Nurse Filling Out Transfusion VCHRISTIN 11/01/25 08:51 & Questions: Date: 11/01/25 11/01/25 08:51 Time: 08:52 11/01/25 08:51 Patient unable to answer at this time (ie. confused, unrespo /Reproduction History /Reproductive History - scrap charger: /Reproductive Hx- scrap charger Hx Now No 11/01/25 08:51 Gestational Age (in weeks): EDC: Hx Hx Para Hx Section SAB No 11/01/25 08:51 Does the father of the baby or his family experience fever w Father of the baby Malignant Hypertension history comment Active Medications Active Medications: Current Medications Generic Name Dose Route Start Last Admin Trade Name Freq PRN Reason Stop Dose Admin Cefazolin Sodium 2 gm/ Sodium 110 mls @ 200 mls/hr 11/14/25 07:00 Chloride IV 11/14/25 07:32 INTRAOP ONE Lactated Ringer's 1,000 mls @ 15 mls/hr 11/14/25 06:15 IV .Q48H KHUSHBU PFSH Medical History Wears hearing aid Wears glasses Wears contact lenses Cancer High cholesterol Heartburn Smoker On home oxygen therapy Shortness of breath on exertion History of pain when walking History of edema History of echocardiogram History of stress test Cardiology follow-up encounter Hx of retinal detachment Vitamin D deficiency Tobacco abuse counseling Tobacco abuse Vitamin B12 deficiency Type 2 diabetes mellitus Presence of stent in coronary artery (~02/17/06) Pure hypercholesterolemia Essential hypertension CKD (chronic kidney disease) Diabetes HTN (hypertension) Ischemic cardiomyopathy 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 (current) drug therapy Atherosclerotic heart disease of [place] coronary artery without angina pectoris HLD (hyperlipidemia) Cardiomyopathy, ischemic CAD (coronary artery disease) Home Medications ?Medication ?Instructions ?Recorded ?Last Taken ?Type fenofibrate nanocrystallized 145 145 mg PO QHS CHOLESTEROL 11/30/14 11/13/25 History mg tablet cecjrdgx-hkk-lreou acid 0.4 1 ea PO DAILY SUPPLEMENT 11/30/14 11/13/25 History mg-lycopene 300 mcg-lutein 250 mcg tablet aspirin 81 mg tablet,delayed 81 mg PO DAILY BLOOD THINNER 03/18/18 11/13/25 History release (Adult Low Dose Aspirin) atorvastatin 80 mg tablet 80 mg PO QHS CHOLESTEROL 03/18/18 11/13/25 History finasteride 5 mg tablet 5 mg PO DAILY URINATION 03/18/18 11/13/25 History dapagliflozin propanediol 10 mg 10 mg PO QAM DIABETES 04/13/20 11/10/25 History tablet (Farxiga) metoprolol tartrate 100 mg tablet 50 mg PO BID BP 08/17/20 11/14/25 History metformin 500 mg tablet,extended 500 mg PO BID DIABETES 12/04/23 11/13/25 History release 24 hr omega-3 fatty acids 1,200 cap PO QAM SUPPLEMENT 12/15/24 11/13/25 History sitagliptin phosphate 100 mg tablet 100 mg PO DAILY DIABETES 01/05/25 11/13/25 History pentoxifylline 400 mg 400 mg PO BID LEG CIRCULATION 08/04/25 11/13/25 History tablet,extended release tamsulosin 0.4 mg capsule 0.4 mg PO BID urination 10/23/25 11/13/25 History vitamin D3 1,250 mcg (50,000 1 cap PO DAILY SUPPLEMENT 11/01/25 11/13/25 History unit)-vitamin K2 200 mcg capsule losartan 25 mg tablet 25 mg PO QDAY BP #90 tabs 11/06/25 11/13/25 Rx Allergy/AdvReac Type Severity Reaction Status Date / Time spironolactone AdvReac Intermediate Marked Verified 11/14/25 06:38 hypotension, unresponsive Family History Father Cancer Mother No problems noted. Surgical History History of cardiac catheterization Hx of eye surgery History of prostate surgery Presence of coronary angioplasty implant and graft (~02/17/06) History of colonoscopy History of cataract extraction History of removal of cyst History of prostate surgery S/P PTCA (percutaneous transluminal coronary angioplasty) S/P CABG x 3 (~1991) Social History Smoking Status: Light Smoker (<10/day) Tobacco: How many years used: 30 quit status: considering quitting alcohol intake: current alcohol intake frequency: holidays/special occasions only substance use type: does not use caffeine: Yes Type: coffee Number of servings: 6 geena/methodist: [place] seatbelt use: always do you feel safe at home: Yes Review of Systems (Anesthesia) ROS Narrative System reviewed and no additional complaints, except as documented.
[2025-11-14] MEDS: Lactated Ringers 1,000 ML 15 ML IV ×2 (06:48→12:05)
[2025-11-14] MEDS: Midazolam 2 MG/2 ML Syringe 1.5 MG IV (07:20)
--- NOTE | 2025-11-14 07:27 | PCM.HP.BLA ---
History and Physical Allergies spironolactone Adverse Reaction (Intermediate, Verified 10/16/25 16:26) Marked hypotension, unresponsive Medications ?Medication ?Instructions ?Recorded ?Confirmed ?Type fenofibrate nanocrystallized 145 145 mg PO QHS 11/30/14 10/16/25 History mg tablet [id number]-gts-[id number] acid 0.4 1 ea PO DAILY 11/30/14 10/16/25 History mg-lycopene 300 mcg-lutein 250 mcg tablet tamsulosin 0.4 mg capsule 0.4 mg PO DAILY #30 caps 12/05/14 10/16/25 Rx aspirin 81 mg tablet,delayed 81 mg PO DAILY 03/18/18 10/16/25 History release (Adult Low Dose Aspirin) atorvastatin 80 mg tablet 80 mg PO QHS 03/18/18 10/16/25 History finasteride 5 mg tablet 5 mg PO DAILY 03/18/18 10/16/25 History dapagliflozin propanediol 10 mg 10 mg PO QAM 04/13/20 10/16/25 History tablet (Farxiga) metoprolol tartrate 100 mg tablet 50 mg PO BID 08/17/20 10/16/25 History metformin 500 mg tablet,extended 500 mg PO BID 12/04/23 10/16/25 History release 24 hr omega-3 fatty acids [Fish Oil] 1,200 cap PO QAM 12/15/24 10/16/25 History sitagliptin phosphate 100 mg tablet 100 mg PO DAILY 01/05/25 10/16/25 History pentoxifylline 400 mg 400 mg PO BID 08/04/25 10/16/25 History tablet,extended release losartan 25 mg tablet 25 mg PO QDAY #30 tabs 09/13/25 10/16/25 Rx Medication Reconciliation completed?: Yes Have you fallen in the past year?: No PFSH Medical History (Updated 10/16/25 @ 18:[address] 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 Social History Smoking Status: Light Smoker (<10/day) Tobacco: How many years used: 30 alcohol intake: current alcohol intake frequency: holidays/special occasions only substance use type: does not use caffeine: Yes Type: coffee Number of servings: 6 seatbelt use: always do you feel safe at home: Yes HPI HPI HPI: MARISOL BARRIGA, is a 79 M who presents to the office today for follow up of severe asymptomatic right ICA stenosis, severe lower extremity arterial insufficiency with short distance claudication and now right foot rest pain that is new over past few weeks. No foot wounds. No new numbness/weakness/vision loss/speech difficulty. Since last being seen had syncope attributed to antihypertensives. Also with CTA runoff. ROS General General: No weight change, appetite, fatigue, colon cancer, breast cancer or weakness HEENT HEENT: No difficulty swallowing, eye injury, eye surgery, swollen glands or hoarseness Endo Endocrine: Yes diabetes mellitus; No thyroid disease, thyroid cancer, Hair loss, heat intolerance or cold intolerance Skin Skin: No rash or changing moles Musc Musculoskeletal: Yes joint pain; No back problems, arthritis, rheumatoid arthritis or gout Cardio Cardiovascular: Yes heart disease, heart attack and heart stent; No murmur, pacemaker, atrial fibrillation, high blood pressure, palpitations, shortness of breath with exertion or chest pain Psych Psychiatric: No depression, anxiety or hearing voices Resp Respiratory: No shortness of breath, No sleep apnea, No cough, No COPD, No asthma, No emphysema and No wheezing Additional Details: O2 at night Gastro Gastrointestinal: No abdominal pain, No nausea or vomiting, No diarrhea, No constipation, No blood in stool, No acid reflux, No hemorrhoids, No ulcers, No gallbladder problem and No black,tarry stools Nino Hematologic: Yes blood thinners, No blood disorders, No bleeding, No anemia and No blood clots Additional Details: asa Neuro Neurologic: No system reviewed and no additional complaints, except as documented, No as per HPI, No abnormal gait, Yes abnormal hearing, No abnormal movements, No abnormal speech, No behavioral changes, No burning sensations, No confusion, No convulsions, No disequilibrium, No dizziness, No localized weakness, No frequent falls, No headache(s), No lack of coordination, No loss of vision, No memory loss, Yes numbness, Yes other visual disturbances, No radicular pain, No restless legs, No sensory deficit, No syncope, Yes tingling, No tremor(s), No weakness and No other Exam Const General: cooperative, healthy appearing, comfortable, no acute distress and well developed Nutritional Appearance: well nourished Orientation: alert, awake and oriented x3 HENMT Head: normocephalic and atraumatic Ears: hearing grossly normal bilaterally Nose: external nose normal Eyes General: appearance normal, both eyes and all related structures EOM: EOM intact bilaterally Neck Neck: normal visual inspection, full ROM, no lymphadenopathy and trachea midline Thyroid: thyroid normal Lymphatic: no lymphadenopathy noted Resp Effort & Inspection: normal respiratory effort, able to speak in complete sentences, symmetric chest movement, no audible wheezes, not labored, no stridor and no use of accessory muscles Cardio Rate: regular rate Rhythm: regular rhythm Skin General: no rashes or lesions noted and erythema (dependent rubor, right foot ) Wounds: no wounds Neuro Cranial Nerves: CN's II-XI intact bilaterally and EOM intact bilaterally Speech: speech normal Gait: normal gait Motor: strength 5/5 throughout Sensory Exam: no sensory deficits noted Psych Appearance: grossly normal and well kempt Mental Status: mental status grossly normal Mood: congruent mood Speech and Movement: speech and movement normal Thought Content: normal Judgment: judgment good Coding Level of Care Code Off vis,est,level 5 Diagnoses Atherosclerosis of [place] arteries of extremities with rest pain, bilateral legs I70.223 Bilateral carotid artery stenosis I65.23 Additional Codes Intake - Is patient in pain?: Yes (1125F) Intake - Medication Reconciliation completed?: Yes (1160F) Assessment and Plan Assessment and Plan (1) Atherosclerosis of [place] arteries of extremities with rest pain, bilateral legs: Status: Chronic Plan: -initially short distance claudication and mild nocturnal rest pain, now with persistent rest pain; diabetic -CTA images reviewed, significant calcification with multi level disease -right common/external iliac stenosis, right common femoral/profunda origin/SFA calcified severe stenosis, likely popliteal calcified occlusion -left common/external iliac occlusion, left common femoral/profunda origin/SFA calcified severe stenosis, likely popliteal calcified occlusion -with distribution of disease/symptoms would benefit from right iliac intravascular lithotripsy/stent, bilateral common/profunda femoral endarterectomy, right to left fem-fem bypass, bilateral sartorius flaps -risks/benefits/alternatives/indications discussed, agreeable to proceed -would address carotid first (2) Bilateral carotid artery stenosis: Status: Chronic Comment: CTA Head/Neck 08/04/25: R ICA 72% stenosis by NASCET Plan: -though severe has been stable on serial imaging; in past had opted for conservative approach -given need for open LE revascularization would recommend treating carotid first with CEA -risks/benefits/alternatives/indications discussed -agreeable to proceed
--- NOTE | 2025-11-14 07:30 | PLAQ_PTH ---
PATIENT: MARISOL BARRIGA LOC: ICU U#:[id number] AGE/SX: 79/M ROOM: [facility] RE11/14/[address]: Dr. Bhavin Jorge MD : 1945 BED: 1 DIS: 11/15/2025 SPEC #: [id number] RECD: 11/14/25 14:42 STATUS: NOBEL REQ #: [id number] FAIZA: 11/14/25 07:[address]: Bhavin Jorge DEPT: SURGICAL PATHOLOGY RECD BY: Clayton Cummins ENTERED: 11/14/25 15:14 SP TYPE: PLAQUE MICHI DR: Dr. Becca Bates DO Tissues: A - PLAQUE Procedures: Decalcification bone/plaque Surgery Specimen Level III HEADER OPERATION: Right carotid endarterectomy PRE-OP DIAGNOSIS: Bilateral carotid artery stenosis TISSUE SUBMITTED: A- Right carotid plaque MICROSCOPIC DIAGNOSIS A. Plaque, carotid, right, endarterectomy: GROSS DESCRIPTION A. Received in formalin labeled with the patient's name and date of . Designated as right carotid plaque is a 2.7 x 1.3 x 0.8 cm braswell-yellow bifurcated, calcified plaque. Injection Molding Process Technician sections are submitted in 1 cassette, following decalcification. AR 11/14/2025PT:[id number]
[2025-11-14] MEDS: Cefazolin 1 GM/5 ML Vial 2 GM IV (07:31)
[2025-11-14] MEDS: Lidocaine 1% (5 ml sdv) 5 ML Vial IV (07:38)
[2025-11-14] MEDS: Lactated Ringers 2,000 ML 2000 ML IV (08:35)
[2025-11-14] MEDS: Heparin Injection (Vial) 5,000 UNIT/ML VIAL 8000 UNIT IV (09:12)
[2025-11-14] MEDS: SUFentanil 50 MCG/ML Ampul 15 MCG IV (10:11)
[2025-11-14 10:16] LABS: ACT Activated Clotting Time 291 sec (74-137)
[2025-11-14 10:16] LABS: ACT Activated Clotting Time 245 sec (74-137)
[2025-11-14 10:16] LABS: ACT Activated Clotting Time 153 sec (74-137)
[2025-11-14 10:16] LABS: ACT Activated Clotting Time 250 sec (74-137)
--- NOTE | 2025-11-14 10:44 | PCM.POST.ANE ---
Anesthesia: Postop Eval I Current Vital Signs Temperature: 97.1 F Pulse Rate: 55 Blood Pressure: 103/34 Respiratory Rate: 20 Pulse Ox: 96 Oxygen Delivery Method: Room Air Assessment Airway patent: Yes Spontaneous unlabored respirations: Yes Mental status: Awake and Calm nausea: No Vomiting: No Anesthesia Complication: No Fluid Hydration Crystalloid volume administer (ml): 1,700 Total IV fluid infused: 1,700 Progress Note Anesthesia document: Postop Eval 1 completed: Yes
[2025-11-14] MEDS: Lactated Ringers 1,000 ML 999 ML IV (11:45)
[2025-11-14] MEDS: Cefazolin 1 GM/50 ML BAG IV ×2 (14:55→23:27)
--- NOTE | 2025-11-14 18:43 | OP.PCM_ITS ---
Operative Report (Standard) Operative Information Date of Procedure: 11/14/25 Pre-Operative Diagnosis: Right carotid stenosis Post-Operative Diagnosis: Same Surgery/Procedure Performed: Right carotid endarterectomy branch operation evaluation manager: Yes Fell Cutter: [place] Cleaning Tasks completed by commercial escrow assistant: Opening, Closing, Opening & closing, Hemostasis: Tie and Retracting Type of Anesthesia: General RN Documented Start/Stop Times: Operation Date: 11/14/25 07:30 Case Time Into Pre-Op 11/14/25 06:04 Anesthesia Start 11/14/25 07:30 Into Room 11/14/25 07:30 Procedure Start 11/14/25 07:56 Procedure End 11/14/25 10:24 Anesthesia End 11/14/25 10:36 Out of Room 11/14/25 10:36 Into Recovery 11/14/25 10:50 Procedure Start Time: 07:55 Procedure Stop Time: 10:25 Select all DRAINS/GRAFTS/IMPLANTS that apply: Prosthetic device Prosthetic device details: Bovine pericardial patch Estimated Blood Loss: 11 Specimen collected: Yes Description of specimen(s) removed: Plaque Description of surgery: HPI: Patient is a 79-year-old male with severe carotid stenosis which is asymptomatic. He has significant calcification and is not optimal for stenting so he presents now for carotid endarterectomy for stroke reduction. Description of procedure: Upon obtaining informed consent and verification correct patient procedure site the patient was taken to the operating room placed under general anesthesia. He was then positioned prepped and draped in usual sterile fashion timeouts performed. An oblique incision was made along the anterior border the sternocleidomastoid and Bovie used to dissect down through subcutaneous tissue to the level of the platysma. The platysma was then divided and self-retaining retractors put into position. Further dissection then carried down to the sternocleidomastoid which was mobilized along its anterior border and retracted posterior laterally exposing the carotid sheath. Sharp dissection was then used to dissect free the anterior edge of the jugular vein and the facial vein was identified, ligated, divided. The jugular vein was then retracted laterally exposing the carotid artery. Sharp dissection was used to dissect free the proximal common carotid artery with care taken to identify and protect the vagus nerve. A right angle was used to place a vessel loop proximally and attention was then turned to the internal carotid artery. Sharp dissection was used dissect free the distal internal carotid artery beyond the area of palpable and visible plaque with care taken to identify and protect the hypoglossal nerve. A right angle was then used to place a vessel loop distally and the patient heparinized allowed to circulate for 3 minutes with subsequent heparin dosing based on ACT results. During this time sharp dissection was used dissect free the external carotid artery and a right angle used to place a vessel loop. The vessel was then occluded first the internal followed by the common and the external. A longitudinal arteriotomy was created with 11 blade and the distal common carotid artery and extended onto the internal carotid artery with Flores scissors. A 14 Indonesian Gustine shunt was then placed first distally in the internal carotid artery and allowed to backbleed before placing approximately the common carotid artery. We then performed our endarterectomy with a freer elevator with satisfactory endpoint distally on the internal carotid artery and eversion endarterectomy of the external carotid artery. The distal endpoint was intact with 7-0 Prolene interrupted sutures and the lumen flushed with heparinized saline to clear debris. A bovine pericardial patch was then secured in position with a 6-0 Prolene in a running fashion. Prior to completing suture line the shunt was withdrawn and the vessel was backbled. After completing a suture line the internal carotid artery was allowed to backbleed and the bifurcation and reoccluded at the origin. Clamps were then released from the external and the common carotid artery allowing 10 heartbeats of antegrade flow to flush into the external before reestablishing antegrade flow in the internal. The incision was then inspected for hemostasis and the heparin reversed with protamine. A 19 Indonesian channel HELEN was placed via separate stab incision and the incision closed with 2-0 Vicryl, 3-0 Vicryl, 4-0 Monocryl and Dermabond for the skin. At the conclusion of case the patient was awakened anesthesia moving all extremities to command with cranial nerves intact. He was then taken to recovery room with anticipated admission to the intensive care unit for hemodynamic and neurologic monitoring. Surgical Findings: Moving all extremities to command, cranial nerves intact Complications Complications: No
[2025-11-15] VITALS (17 sets, daily range): BP systolic 107–143; BP diastolic 43–72; PULSE 51–89; RESP 13–19; TEMP 36.3–36.5; O2SAT 92–100; BMI 23.1
[2025-11-15 03:19] LABS: Hematocrit 34.1 % (40-54); Hemoglobin 11.5 g/dL (13.0-16.5); Immature Granulocytes Count 0.020 X10^3/uL (0.0-0.0); Mean Corp Hgb Conc 33.7 g/dL (32-36); Mean Corpuscular Volume 91.7 fL (80-94); Mean Platelet Vol. 10.6 fl (6.2-12.0); NRBC Flagged by Analyzer 0 % (0-5); Platelet Count 171 K/mm3 (150-450); RBC Distribution Width CV 16.1 % (11.6-14.6); RBC Distribution Width SD 54.7 fl (35.1-43.9); Red Blood Count 3.72 M/mm3 (4.6-6.2); White Blood Count 9.5 K/mm3 (4.4-11.0)
--- NOTE | 2025-11-15 07:15 | PCM.PN.SRG ---
Subjective Subjective I saw Mr. Almazan this morning at bedside. He was resting comfortably in bed, starting to eat breakfast. He reports he had dinner last night and tolerated that well. He reports feeling pretty good, he is having minimal discomfort at the surgical site. He denies any headaches, vision changes, new numbness/weakness. He did have difficulty voiding yesterday, he was only voiding ~50ccs at a time per nursing, had significant urge, and had significant post-void residual so saeed catheter was replaced yesterday evening. He does have some urinary retention at baseline but typically well managed with flomax and finasteride. He has had lower BPs but not requiring any intervention. Objective Data Objective Data Vital Signs: Vital Signs Temp Pulse Resp BP Pulse Ox O2 Del Method 97.4 F L 53 L 14 107/50 L 92 Room Air 11/15/25 04:00 11/15/25 07:00 11/15/25 07:00 11/15/25 07:00 11/15/25 07:00 11/15/25 07:00 Oxygen Delivery Method Room Air Weight: 152 lb 12.485 oz Body Mass Index (BMI) 23.1 Intake & Output: Intake and Output for Last 24 Hours 11/13/25 11/14/25 11/15/25 23:59 23:59 23:59 Intake Total 3066.25 / 3066.25 50 / 50 Output Total 1051 / 1151 1280 / 1280 Balance -1230 / -1230 Lab / Micro Data 11/15/25 03:10 Labs: Laboratory Results - last 24 hr 11/14/25 06:37: POC Glucose 115 H 11/14/25 08:54: Activated Clotting Time 153 H 11/14/25 09:36: Activated Clotting Time 291 H 11/14/25 10:07: Activated Clotting Time 245 H 11/14/25 10:41: Activated Clotting Time 250 H 11/14/25 12:12: POC Glucose 134 H 11/14/25 13:12: POC Glucose 135 H 11/14/25 20:23: POC Glucose 211 H 11/15/25 03:10: WBC 9.5, RBC 3.72 L, Hgb 11.5 L, Hct 34.1 L, MCV 91.7, MCH 30.9, MCHC 33.7, RDW Std Deviation 54.7 H, RDW Coeff of Livan 16.1 H, Plt Count 171, MPV 10.6, Immature Gran % (Auto) 0.200, Neut % (Auto) 65.2, Lymph % (Auto) 25.3, [place] % (Auto) 8.9, Eos % (Auto) 0.2, Baso % (Auto) 0.2, Absolute Neuts (auto) 6.2, Absolute Lymphs (auto) 2.41, Nucleated RBC % 0 Physical Exam Const alert, oriented x3 and no apparent distress HEENT normocephalic, head/scalp atraumatic, hearing grossly normal bilaterally, external ears normal and external nose normal Eyes General Eye: normal appearance of both eyes Neck Neck Narrative: R neck incision site with skin glue intact, no dehiscence, no bruising, minimal swelling. HELEN drain in place with ~5cc serosanguineous output Resp normal respiratory effort, normal air movement, no retractions and no use of accessory muscles Effort and Inspection: able to speak in complete sentences; Negative for labored, grunting or stridor Cardio regular rate and regular rhythm Extremity no clubbing, cyanosis or edema Skin no rashes or lesions noted Trauma: no lacerations or abrasions Neuro oriented x3, CN's II-XII intact bilaterally, moves all extremities and no focal motor deficits Speech: speech normal Psych mental status grossly normal Appearance: grossly normal Attitude: calm and engaged Activity / Motor Behavior: appropriate eye contact Speech: normal speech Mood & Affect: euthymic mood Assessment & Plan Assessment/Plan (1) Stenosis of right carotid artery: PLAN: He is POD#1 from R CEA. Incision site is satisfactory in appearance without signs of hematoma. I removed the HELEN drain without issue, he tolerated this well. His blood pressures and HR have been on the lower side; will hold home losartan and metoprolol for now and monitor. Will plan to remove saeed catheter and attempt voiding trial through the morning. If no improvement in his urinary retention, can replace saeed this afternoon and send him home with it in place and urology f/u. He is agreeable to this plan. Anticipate discharge this afternoon. Charges/Coding Procedures Integumentary [id number]: [id number] Global Visit
[2025-11-15] MEDS: metFORMIN (XR) 500 MG Tablet PO (08:46)
[2025-11-15] MEDS: Aspirin E.C. 81 MG Tablet PO (08:46)
[2025-11-15] MEDS: LINAGLIPTIN 5 MG TABLET PO (08:47)
--- NOTE | 2025-11-15 10:46 | CASEMGMT ---
LOR ROGER Assessment Face to Face with patient for initial transition planning/care coordination assessment. LOR ROGER introduced self and role at [facility], pt voices understanding. Pt is A&Ox4 and is resting comfortably in bed and is calm. Care providers, pharmacy, and demographics verified. Admitting dx: Right Carotid Endarterectomy LACE Strata: 2 PCP: Becca Bates Specialists: Luisito (Vascular) Preferred Pharmacy: [facility] Insurance: [employer] MCR Prescription Benefit: Yes LNOK: [employer] (W) Living Arrangements: Pt lives with his in a single story home with a ramp to enter ADLs/IADLs: Indep, 6-Click score is 24 Transportation: Self, DME: Home oxygen through [employer]. Confirmed with [employer] that pt's current orders state 2L HS via [place] only. Pt is currently 97% on RA. Pt states that he has a concentrator and denies any further DME needs. HHC/SNF: Denies hx or needs Pt?s goal: Home Plan: Home with pt's once medically ready, no further needs identified. Per ICU rounds, pt will need to void before DC. At this time, the pt states that he feels safe returning home with his at the time of DC and denies the need for any additional therapy or resources. Pt denies further questions or concerns. Lizbet Jarquin RN, CM
--- NOTE | 2025-11-15 16:08 | DS.PCM_ITS ---
Providers Date of Admission: 11/14/25 Primary Care Physician: Dr. Becca Bates, DO Reason For Visit: Right Carotid Endarterectomy Diagnosis Discharge Diagnosis (1) Stenosis of right carotid artery: Status: Acute Code(s): I65.21 - Occlusion and stenosis of right carotid artery Plan: He is POD#1 from R CEA. Incision site is satisfactory in appearance without signs of hematoma. I removed the HELEN drain without issue, he tolerated this well. His blood pressures and HR have been on the lower side; will hold home losartan and metoprolol for now and monitor. Will plan to remove saeed catheter and attempt voiding trial through the morning. If no improvement in his urinary retention, can replace saeed this afternoon and send him home with it in place and urology f/u. He is agreeable to this plan. Anticipate discharge this afternoon. Medications at Discharge Home Medications fenofibrate nanocrystallized 145 mg tablet 145 mg PO QHS CHOLESTEROL 11/30/14 lctumucx-xfi-gvtej acid 0.4 mg-lycopene 300 mcg-lutein 250 mcg tablet 1 ea PO DAILY SUPPLEMENT 11/30/14 aspirin 81 mg tablet,delayed release (Adult Low Dose Aspirin) 81 mg PO DAILY BLOOD THINNER 03/18/18 atorvastatin 80 mg tablet 80 mg PO QHS CHOLESTEROL 03/18/18 finasteride 5 mg tablet 5 mg PO DAILY URINATION 03/18/18 dapagliflozin propanediol 10 mg tablet (Farxiga) 10 mg PO QAM DIABETES 04/13/20 metoprolol tartrate 100 mg tablet 50 mg PO BID BP 08/17/20 Held on 11/15/25. Instructions: Resume on 11/16/25. metformin 500 mg tablet,extended release 24 hr 500 mg PO BID DIABETES 12/04/23 omega-3 fatty acids 1,200 cap PO QAM SUPPLEMENT 12/15/24 sitagliptin phosphate 100 mg tablet 100 mg PO DAILY DIABETES 01/05/25 pentoxifylline 400 mg tablet,extended release 400 mg PO BID LEG CIRCULATION 08/04/25 tamsulosin 0.4 mg capsule 0.4 mg PO BID urination 10/23/25 vitamin D3 1,250 mcg (50,000 unit)-vitamin K2 200 mcg capsule 1 cap PO DAILY SUPPLEMENT 11/01/25 losartan 25 mg tablet 25 mg PO QDAY BP #90 tabs 11/06/25 Held on 11/15/25. Instructions: Resume on 11/17/25. OXYGEN - Supplemental ([facility] INFORMATIONAL USE ONLY) Pulmonary Information 11/14/25 Hospital Course Summary of Care Provided Hospital Course: Mr. Mahendra Almazan is a 79 y/o male who underwent R CEA on 11/14/25. He tolerated the procedure well and it was without complication. Postoperatively, he was routinely admitted to the ICU for ongoing hemodynamic and neurologic monitoring. He has remained neurologically intact and stable throughout his admission. He has had some lower blood pressures so home antihypertensives have been held, but he has not required any vasopressor support. He had some urinary retention the first night postoperatively, but today saeed was removed and he was able to void to his baseline. He has tolerated a normal diet and ambulated without difficulty. The HELEN drain was removed this morning and the incision site is satisfactory in appearance. He is discharged to home today in stable condition with planned outpatient follow-up on 12/01/24. He will hold his home metoprolol and losartan, monitor his home BPs and restart these likely over the next few days as his blood pressure return to baseline. Physical Exam Const alert, oriented x3 and no apparent distress HEENT normocephalic, head/scalp atraumatic, hearing grossly normal bilaterally, external ears normal and external nose normal Eyes General Eye: normal appearance of both eyes Neck Neck Narrative: R neck incision site with skin glue intact, no dehiscence, no bruising, minimal swelling. HELEN drain in place with ~5cc serosanguineous output Resp normal respiratory effort, normal air movement, no retractions and no use of accessory muscles Effort and Inspection: able to speak in complete sentences; Negative for labored, grunting or stridor Cardio regular rate and regular rhythm Extremity no clubbing, cyanosis or edema Skin no rashes or lesions noted Trauma: no lacerations or abrasions Neuro oriented x3, CN's II-XII intact bilaterally, moves all extremities and no focal motor deficits Speech: speech normal Psych mental status grossly normal Appearance: grossly normal Attitude: calm and engaged Activity / Motor Behavior: appropriate eye contact Speech: normal speech Mood & Affect: euthymic mood Weight / BMI Weight Weight: 152 lb 12.485 oz Body Mass Index (BMI) 23.1 ABG / Lab / Microbiology Data 11/15/25 03:10 Laboratory: Laboratory Results - last 24 hr 11/14/25 20:23: POC Glucose 211 H 11/15/25 03:10: WBC 9.5, RBC 3.72 L, Hgb 11.5 L, Hct 34.1 L, MCV 91.7, MCH 30.9, MCHC 33.7, RDW Std Deviation 54.7 H, RDW Coeff of Livan 16.1 H, Plt Count 171, MPV 10.6, Immature Gran % (Auto) 0.200, Neut % (Auto) 65.2, Lymph % (Auto) 25.3, [place] % (Auto) 8.9, Eos % (Auto) 0.2, Baso % (Auto) 0.2, Absolute Neuts (auto) 6.2, Absolute Lymphs (auto) 2.41, Nucleated RBC % 0 11/15/25 08:28: POC Glucose 152 H 11/15/25 11:32: POC Glucose 162 H D/C Instructions Discharge Activity: Return to Normal Activity Weight Bearing Status: Weight bearing as tolerated Lifting Restricted to (Lbs): 20 Lifting Restrictions: Do not lift greater than 20 pounds for 3 weeks Call your doctor if your incision/area has: Continuous Slow Oozing, Increased Pain/ Swelling and Foul Smelling Discharge Call your doctor if you observe: Fever of 101 or Higher and Uncontrolled pain Remove Dressing in: 1 day DC O2, CPAP, BIPAP Needs Home O2 Discharge instructions: No Additional Instructions: INCISION CARE: You have a small bandage on your neck over the site from which the surgical drain was removed. You may remove this bandage tomorrow. As long as there is no residual drainage, you may leave this open to air. If you do notice some continued drainage, you may re-cover with a Band-Aid. Your neck incision site is covered with skin glue which will continue to protect it. The skin glue will peel/flake off on its own over the next few weeks. Please do not pick at it. You may shower tomorrow. It is okay for soap and water to rinse over the incision site, pat to dry. Do not submerge the incision site in water such as to take a bath or go swimming etc. for 3 weeks. MEDICATION INSTRUCTIONS Hold metoprolol and losartan for now. Your blood pressures have been a bit lower than usual following surgery. Please check your blood pressure every morning and every evening or any time you feel dizzy/lightheaded or have other symptoms. When your systolic blood pressure (top number) is 140 mmHg then restart your metoprolol. Then continue to check your blood pressure daily and if it is again >140 on the top, restart your losartan. You can continue to take Tylenol 500-1,000 mg every 8 hours as needed for pain. Call the office at [phone] with any questions about your medications ACTIVITY INSTRUCTIONS Do not lift greater than 20 pounds for 3 weeks. Otherwise, please continue with activity as tolerated. Do not drive until you can turn your head well enough to safely check your blind spots. FOLLOW-UP INSTRUCTIONS You are scheduled for follow-up in the office on 12/01/2024. If you need to change this appointment or have any other questions/concerns, please call the office at [phone]. Please Follow Up With: Paige Araiza PA When: 12/01/24 Meaningful Use Info Meaningful Use Meaningful Use Diagnoses (Choose all that apply): None applicable Discharge Plan Admission Admit Date/Time: 11/14/25 10:06 Attending Provider: Bhavin Jorge Primary Care Provider: Becca Bates Instructions Additional Instructions / Restrictions: INCISION CARE: You have a small bandage on your neck over the site from which the surgical drain was removed. You may remove this bandage tomorrow. As long as there is no residual drainage, you may leave this open to air. If you do notice some continued drainage, you may re-cover with a Band-Aid. Your neck incision site is covered with skin glue which will continue to protect it. The skin glue will peel/flake off on its own over the next few weeks. Please do not pick at it. You may shower tomorrow. It is okay for soap and water to rinse over the incision site, pat to dry. Do not submerge the incision site in water such as to take a bath or go swimming etc. for 3 weeks. MEDICATION INSTRUCTIONS Hold metoprolol and losartan for now. Your blood pressures have been a bit lower than usual following surgery. Please check your blood pressure every morning and every evening or any time you feel dizzy/lightheaded or have other symptoms. When your systolic blood pressure (top number) is 140 mmHg then restart your metoprolol. Then continue to check your blood pressure daily and if it is again >140 on the top, restart your losartan. You can continue to take Tylenol 500-1,000 mg every 8 hours as needed for pain. Call the office at [phone] with any questions about your medications ACTIVITY INSTRUCTIONS Do not lift greater than 20 pounds for 3 weeks. Otherwise, please continue with activity as tolerated. Do not drive until you can turn your head well enough to safely check your blind spots. FOLLOW-UP INSTRUCTIONS You are scheduled for follow-up in the office on 12/01/2024. If you need to change this appointment or have any other questions/concerns, please call the office at [phone]. Discharge Orders/Prescriptions Prescriptions: Continued aspirin [Adult Low Dose Aspirin] 81 mg tablet,delayed release (DR/EC) 81 mg PO DAILY atorvastatin 80 mg tablet 80 mg PO QHS finasteride 5 mg tablet 5 mg PO DAILY dapagliflozin propanediol [Farxiga] 10 mg tablet 10 mg PO QAM metformin 500 mg tablet extended release 24 hr 500 mg PO BID omega-3 fatty acids [Fish Oil] 1,200 cap PO QAM pentoxifylline 400 mg tablet extended release 400 mg PO BID tamsulosin 0.4 mg capsule 0.4 mg PO BID Patient Comments: bladder mvsgjvow-pyz-OA-lycopen-lutein 1 EACH tablet 1 ea PO DAILY Patient Comments: supplement fenofibrate nanocrystallized 145 MG tablet 145 mg PO QHS Patient Comments: high cholesterol sitagliptin phosphate 100 mg tablet 100 mg PO DAILY Patient Comments: diabetes vitamin D3-vitamin K2 1,250-200 mcg capsule 1 cap PO DAILY OXYGEN - Supplemental ([facility] INFORMATIONAL USE ONLY) Patient Comments: 2LPM at Held metoprolol tartrate 100 mg tablet 50 mg PO BID Hold Instructions: Resume on 11/16/25. Patient Comments: blood pressure losartan 25 mg tablet 25 mg PO QDAY Qty: 90 1RF Hold Instructions: Resume on 11/17/25. Rx Instructions: Take at bedtime or suppertime Referrals / Follow Up: Becca Bates DO [Primary Care Provider, Internal Medicine] Disposition Disposition (needs filled in before D/C Order can be placed): Home, Self Care Charges/Coding Procedures Integumentary [id number]: [id number] Global Visit
--- NOTE | 2025-11-15 22:44 | POSTOPAN2_ITS ---
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 Anesthesia Postop Eval I: Fluid Summary Crystalloid volume administer 1,700 11/14/25 10:46 [email or web address] (ml) Colloids volume administered ( ml) Blood Product volume administered (ml) Total IV fluid infused 1,700 11/14/25 10:46 [email or web address] Anesthesia Postop Eval I: Summary Notes Anesthesia Complication No 11/14/25 10:46 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
--- NOTE | 2025-11-15 22:44 | PCM.POSTANE2 ---
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
== END 2025-11-15 17:15 | disposition home or self-care (01) | DRG 39 ==
LOC: ICU 12:30
PROVIDERS: Admitting Provider Surgery Trauma Surgery; PCP Internal Medicine; Referring Provider Surgery Trauma Surgery; Visit Provider Surgery Trauma Surgery
PROC: 03CM0ZZ Extirpation of Matter from Right External Carotid Artery, Open Approach (ICD-10-PCS; CPT 35301; principal; 2025-11-14 07:10)
DX: I65.23 Occlusion and stenosis of bilateral carotid arteries (principal); E11.22 Type 2 diabetes mellitus with diabetic chronic kidney disease; I70.223 Atherosclerosis of native arteries of extremities with rest pain, bilateral legs; N18.9 Chronic kidney disease, unspecified; I12.9 Hypertensive chronic kidney disease with stage 1 through stage 4 chronic kidney disease, or unspecified chronic kidney disease; I25.5 Ischemic cardiomyopathy; E78.00 Pure hypercholesterolemia, unspecified; I25.10 Atherosclerotic heart disease of native coronary artery without angina pectoris; F17.200 Nicotine dependence, unspecified, uncomplicated; Z79.82 Long term (current) use of aspirin; Z79.899 Other long term (current) drug therapy; Z79.84 Long term (current) use of oral hypoglycemic drugs; Z95.5 Presence of coronary angioplasty implant and graft
CPT/HCPCS: 82962; 85025; 85347; 86850; 86900; 86901; 88304; 88311; 94668; 97802; 99252; G0463; J2405